=== PATIENT | female | born 1950 | race Caucasian/White ===

== ENCOUNTER → 2017-08-29 10:04 | Outpatient (CLI) | payer OTHER, SELFPAY ==
--- NOTE | 2017-08-29 10:11 | DI.CT.S_ITS ---
PROCEDURE: CT CERVICAL SPINE WO CON INDICATIONS: neck pain with radiculopathy TECHNIQUE: Noncontrast 3 mm thick sections acquired from the skull base to the T4 level. Sagittal and coronal reformats were then constructed. For radiation dose reduction, the following was used: automated exposure control, adjustment of mA and/or kV according to patient size. COMPARISON: None. FINDINGS: Image quality: Excellent. Bones: No fractures or dislocations. Visualized superior ribs are intact. Prior anterior discectomy and fusion C5-6 and C6-7 with surgical plate and fixation screws appearing intact. There appears to be bony union through the area of fusion, mild marginal irregularity posteriorly. There is disc narrowing and mild spondylosis at the C4-5 level. Slight anterolisthesis at C2-3 and C3-4 with reversal of cervical lordosis at those levels. Visualized upper thoracic spine is unremarkable. Soft tissues: Prevertebral soft tissues are normal in thickness. No paravertebral hematomas. No apical pneumothoraces. Nasal septum deviates to the right with prominent left honey bullosa. IMPRESSION: 1. Remote postoperative changes of anterior discectomy and fusion C5-C6-C7. 2. Degenerative disc disease C4-5. Dictated by: Kev Sánchez M.D. on 08/29/2017 at 10:30 Approved by: Kev Sánchez M.D. on 08/29/2017 at 10:40
== END ==
PROVIDERS: PCP Family Medicine; Visit Provider Family Medicine
DX: M54.12 Radiculopathy, cervical region (principal); M47.892 Other spondylosis, cervical region
CPT/HCPCS: 72125

== ENCOUNTER → 2018-01-21 09:01 | Outpatient (CLI) | payer OTHER, SELFPAY ==
[2018-01-21 10:45] LABS: Cholesterol 252 mg/dL (140-199); HDL Cholesterol 64 mg/dL (40-60); LDL Cholesterol Calculated 161 mg/dL (<100); Triglycerides 136 mg/dL (35-150)
== END ==
PROVIDERS: PCP Family Medicine; Visit Provider Family Medicine
DX: E78.5 Hyperlipidemia, unspecified (principal)
CPT/HCPCS: 36415; 80061

== ENCOUNTER → 2018-04-11 16:27 | Outpatient (CLI) | payer OTHER, SELFPAY ==
--- NOTE | 2018-04-11 16:30 | DI.US.S_ITS ---
PROCEDURE: US PERIPH VENOUS LOW EXTREM RT INDICATIONS: right LE edema, calf pain, r/o DVT TECHNIQUE: Real-time imaging, as well as color and pulse Doppler interrogation, were performed of the lower extremity deep veins from the inguinal ligament to the popliteal fossa. COMPARISON: None. FINDINGS: The deep veins are normally compressible, and free of intraluminal thrombus. Color and pulse Doppler demonstrate normal phasic intraluminal flow. There is normal augmentation response to distal compression maneuver. IMPRESSION: No DVT found. Dictated by: Aries Ojeda M.D. on 04/11/2018 at 17:13 Approved by: Aries Ojeda M.D. on 04/11/2018 at 17:13
== END ==
PROVIDERS: PCP Family Medicine; Visit Provider Family Medicine
DX: M79.661 Pain in right lower leg (principal); R60.9 Edema, unspecified
CPT/HCPCS: 93971

== ENCOUNTER → 2018-08-21 10:42 | Outpatient (CLI) | payer OTHER, SELFPAY ==
--- NOTE | 2018-08-21 10:59 | DI.CT.S_ITS ---
PROCEDURE: CT CHEST ABDOMEN WO CON INDICATIONS: Lung nodule. Left flank and upper quadrant abdominal pain TECHNIQUE: After the administration of oral contrast, 5 mm thick sections acquired from the pulmonary apices to the iliac crests. 5 mm thick coronal and sagittal reformats acquired, with additional 7 mm coronal MIP reformats through the lungs. For radiation dose reduction, the following was used: automated exposure control, adjustment of mA and/or kV according to patient size. COMPARISON: None. FINDINGS: Image quality: Excellent. CHEST: Lungs and pleura: No acute pulmonary opacities. No pleural effusions or pneumothorax. Central and peripheral airways are patent and normal in caliber. Mediastinum: Heart size is normal. No pericardial effusion. No mediastinal adenopathy by size criteria. Thoracic aorta and central pulmonary arteries are normal in size. Esophagus is normal in caliber. No hiatal hernia. Chest wall: No axillary or supraclavicular adenopathy by size criteria. Thyroid gland appears normal. Scattered high density foci within the soft tissues of the chest suggests prior breast carcinoma surgery. No soft tissue mass or evidence of metastatic disease is found. This study is performed without oral or intravenous contrast and therefore is somewhat limited. ABDOMEN: Solid organs: Liver is normal in size. Gallbladder appears normal. Pancreas is normal in contours. Spleen is normal in size. No adrenal nodules. Both kidneys are normal in size, without hydronephrosis or nephrolithiasis. Peritoneum and bowel: Small and large bowel loops are normal in caliber and wall thickness. No free fluid or air. Nodes and vessels: No retroperitoneal or mesenteric adenopathy by size criteria. Aorta and inferior vena cava are normal in caliber. Miscellaneous: No ventral hernias. IMPRESSION: 1. The clinical history provided indicates that outside imaging study or studies may be available that identify an area of pulmonary nodule or other pulmonary parenchymal concern. Those studies have been requested but are not yet available for review. No malignant appearing mass or evidence of pneumonia is currently found and for this reason an addendum report will be generated with benefit of the outside comparison studies when they become available for review. 2. The patient also reports left-sided flank pain, but the current examination shows no evidence of inflammation along the left flank area or evidence of hydronephrosis or nephrolithiasis. Source of those symptoms is not seen. 3. Bilateral high density small structures within the chest wall/breast tissue anteriorly and left axilla raises question of whether prior breast carcinoma surgery has been performed. Please correlate clinically. As noted above the study is without oral or intravenous contrast and there is poor somewhat limited in quality for detecting evidence of metastatic disease. Dictated by: Aries Ojeda M.D. on 08/22/2018 at 11:36 Approved by: Aries Ojeda M.D. on 08/22/2018 at 11:42
== END ==
PROVIDERS: PCP Family Medicine; Visit Provider Family Medicine
DX: R91.1 Solitary pulmonary nodule (principal); R07.9 Chest pain, unspecified; R10.12 Left upper quadrant pain
CPT/HCPCS: 71250; 74150

== ENCOUNTER → 2018-11-04 15:30 | Outpatient (CLI) | payer OTHER, SELFPAY ==
--- NOTE | 2018-11-04 15:32 | DI.MRI.S_ITS ---
PROCEDURE: MR SHOULDER RT WO CON INDICATIONS: right shoulder and arm pain, exam suggests SS tear TECHNIQUE: Noncontrast oblique coronal T2 fast spin echo with fat saturation, oblique sagittal T1 spin echo and T2 fast spin echo with fat saturation, axial T1 spin echo and T2 fast spin echo with fat saturation through the shoulder. COMPARISON: None. FINDINGS: Image quality: Excellent. Rotator cuff: The supraspinatus, infraspinatus, and subscapularis tendons appear intact throughout. Sagittal images demonstrate no muscle atrophy. Bones and bursae: No bone marrow contusions or fractures. There is moderate acromioclavicular joint degeneration. The acromion demonstrates conventional anatomy, without an os acromiale. No pathologic subacromial-subdeltoid or subcoracoid bursal fluid is present. Capsule and soft tissues: In the absence of intra-articular contrast, the labrum and glenohumeral ligaments appear intact. The long head of the biceps tendon demonstrates normal location and morphology. The rotator interval appears normal, without fibrosis. The coracohumeral ligament is normal in thickness. IMPRESSION: 1. Acromioclavicular joint osteoarthritis. 2. No rotator cuff tear. Dictated by: Chan Tucker M.D. on 11/04/2018 at 16:40 Approved by: Chan Tucker M.D. on 11/04/2018 at 16:41
== END ==
PROVIDERS: PCP Family Medicine; Visit Provider Family Medicine
DX: M19.011 Primary osteoarthritis, right shoulder (principal); M75.80 Other shoulder lesions, unspecified shoulder
CPT/HCPCS: 73221

== ENCOUNTER → 2019-02-24 06:58 | Outpatient (CLI) | payer OTHER, SELFPAY ==
[2019-02-24 08:28] LABS: Add Manual Diff / Slide Review NO; Basophils Absolute Auto 100 /uL (0-100); Basophils Percent Auto 1.7 % (0-2); Eosinophils Absolute Auto 500 /uL (0-450); Eosinophils Percent Auto 9.6 % (2-4); Hematocrit 38.3 % (36-46); Hemoglobin 12.7 g/dL (12.0-16.0); Lymphocytes Absolute Auto 1700 /uL (1100-4500); Lymphocytes Percent Auto 31.5 % (25-40); Mean Corpuscular HGB Conc 33.1 % (30-36); Mean Corpuscular Volume 84.5 fL (80-100); Monocytes Absolute Auto 300 /uL (0-900); Monocytes Percent Auto 6.1 % (3-14); Neutrophils Absolute Auto 2700 /uL (1500-7000); Neutrophils Percent Auto 51.1 % (50-75); Platelet Count 297 X10^3/uL (150-400); Red Blood Cell Count 4.53 X10^6/uL (4.0-5.2); Red Cell Distribution Width 13.4 % (11.6-14.8); White Blood Cell Count 5.4 X10^3/uL (4.5-11.0)
[2019-02-24 08:47] LABS: Alanine Aminotransferase 21 IU/L (<35); Albumin 4.3 g/dL (3.5-5.0); Albumin Globulin Ratio 1.4 (1.0-2.8); Alkaline Phosphatase 60 U/L (38-126); Aspartate Aminotransferase 27 IU/L (14-36); BUN Creatinine Ratio 23.3 (6-22); Bilirubin Total 0.6 mg/dL (0.2-1.3); Blood Urea Nitrogen 21 mg/dL (7-17); Calcium 9.5 mg/dL (8.4-10.2); Carbon Dioxide 29 mmol/L (22-32); Chloride 104 mmol/L (98-107); Cholesterol 233 mg/dL (140-199); Estimated Glomerular Filt Rate > 60.0 mL/min (>60); Globulin 3.1 g/dL (1.7-4.1); Glucose 110 mg/dL (80-110); HDL Cholesterol 55 mg/dL (40-60); HEMOLYSIS < 15 (0-50); LDL Cholesterol Calculated 147 mg/dL (<100); Potassium 3.7 mmol/L (3.4-5.1); Sodium 141 mmol/L (137-145); Total Protein 7.4 g/dL (6.3-8.2); Triglycerides 154 mg/dL (35-150)
[2019-02-24 09:17] LABS: Thyroid Stimulating Hormone 4.08 uIU/mL (0.47-4.68)
== END ==
PROVIDERS: PCP Family Medicine; Visit Provider Family Medicine
DX: E78.00 Pure hypercholesterolemia, unspecified (principal); I10 Essential (primary) hypertension; I67.9 Cerebrovascular disease, unspecified; E78.5 Hyperlipidemia, unspecified
CPT/HCPCS: 36415; 80053; 80061; 84443; 85025

== ENCOUNTER → 2019-04-28 07:26 | Outpatient (CLI) | payer OTHER, SELFPAY ==
[2019-04-28 08:08] LABS: Cholesterol 190 mg/dL (140-199); HDL Cholesterol 55 mg/dL (40-60); LDL Cholesterol Calculated 107 mg/dL (<100); Triglycerides 138 mg/dL (35-150)
[2019-04-28 08:31] LABS: C-Reactive Protein Quant < 0.5 mg/dL (<1.0)
== END ==
PROVIDERS: PCP Family Medicine; Referring Provider Family Medicine; Visit Provider Family Medicine
DX: E78.00 Pure hypercholesterolemia, unspecified (principal); M79.10 Myalgia, unspecified site
CPT/HCPCS: 36415; 80061; 86140

== ENCOUNTER → 2019-09-30 11:47 | Outpatient (CLI) | payer OTHER, SELFPAY ==
--- NOTE | 2019-09-30 11:50 | DI.RAD.S_ITS ---
PROCEDURE: XR CHEST 2V INDICATIONS: SHORTNESS OF BREATH TECHNIQUE: 2 views of the chest were acquired. COMPARISON: None. FINDINGS: Surgical changes and devices: Surgical clips in the breasts bilaterally. Partially visualized cervical spine fixation hardware. Lungs and pleura: Lungs are clear. No pleural effusions or pneumothorax. Mediastinum: Mediastinal contours are normal. Heart size is normal. Bones and chest wall: No suspicious bony abnormalities. Soft tissues appear unremarkable. IMPRESSION: No acute cardiopulmonary disease process. Dictated by: Suyapa Ling MD, PhD on 09/30/2019 at 17:40 Approved by: Suyapa Ling MD, PhD on 09/30/2019 at 17:40
== END ==
PROVIDERS: PCP Family Medicine; Referring Provider Family Medicine; Visit Provider Family Medicine
DX: R06.02 Shortness of breath (principal)
CPT/HCPCS: 71046

== ENCOUNTER → 2019-10-01 08:16 | Outpatient (CLI) | payer OTHER, SELFPAY ==
[2019-10-01 10:22] LABS: Add Manual Diff / Slide Review NO; Basophils Absolute Auto 100 /uL (0-100); Basophils Percent Auto 1.2 % (0-2); Eosinophils Absolute Auto 300 /uL (0-450); Eosinophils Percent Auto 6.4 % (2-4); Hematocrit 38.7 % (36-46); Hemoglobin 12.6 g/dL (12.0-16.0); Lymphocytes Absolute Auto 1500 /uL (1100-4500); Lymphocytes Percent Auto 29.4 % (25-40); Mean Corpuscular HGB Conc 32.6 % (30-36); Mean Corpuscular Hemoglobin 27.3 PG (26-34); Mean Corpuscular Volume 83.9 fL (80-100); Monocytes Absolute Auto 400 /uL (0-900); Neutrophils Absolute Auto 2900 /uL (1500-7000); Platelet Count 291 X10^3/uL (150-400); Red Blood Cell Count 4.62 X10^6/uL (4.0-5.2); Red Cell Distribution Width 13.8 % (11.6-14.8); White Blood Cell Count 5.2 X10^3/uL (4.5-11.0)
[2019-10-01 10:32] LABS: Alanine Aminotransferase 20 IU/L (<35); Albumin 4.3 g/dL (3.5-5.0); Albumin Globulin Ratio 1.4 (1.0-2.8); Alkaline Phosphatase 65 U/L (38-126); Aspartate Aminotransferase 27 IU/L (14-36); BUN Creatinine Ratio 21.5 (6-22); Bilirubin Total 0.6 mg/dL (0.2-1.3); Blood Urea Nitrogen 20 mg/dL (7-17); Calcium 9.8 mg/dL (8.4-10.2); Carbon Dioxide 29 mmol/L (22-32); Chloride 105 mmol/L (98-107); Cholesterol 263 mg/dL (140-199); Estimated Glomerular Filt Rate > 60.0 mL/min (>60); Glucose 106 mg/dL (80-110); HDL Cholesterol 56 mg/dL (40-60); HEMOLYSIS < 15 (0-50); LDL Cholesterol Calculated 175 mg/dL (<100); Potassium 3.9 mmol/L (3.4-5.1); Sodium 142 mmol/L (137-145); Total Protein 7.3 g/dL (6.3-8.2); Triglycerides 158 mg/dL (35-150)
[2019-10-01 10:58] LABS: TSH w/ Reflex to FT4 4.47 uIU/mL (0.47-4.68)
== END ==
PROVIDERS: PCP Family Medicine; Referring Provider Family Medicine; Visit Provider Family Medicine
DX: R53.83 Other fatigue (principal); I10 Essential (primary) hypertension
CPT/HCPCS: 36415; 80053; 80061; 82043; 82570; 84443; 85025

== ENCOUNTER → 2019-10-01 13:51 | Outpatient (CLI) | payer OTHER, SELFPAY ==
[2019-10-01 15:44] LABS: Creatinine Urine Random 148.3 mg/dL
[2019-10-01 15:46] LABS: Microalbumi Creatinin Ratio Ur 10.1 ug/mg CR (<30); Microalbumin Urine Random 1.5 mg/dL (0-1.6)
== END ==
PROVIDERS: PCP Family Medicine; Referring Provider Family Medicine; Visit Provider Family Medicine
DX: I10 Essential (primary) hypertension (principal)
CPT/HCPCS: 82043; 82570

== ENCOUNTER → 2019-10-06 06:49 | Outpatient (CLI) | payer OTHER, SELFPAY ==
--- NOTE | 2019-10-06 06:50 | DI.ECHO.S_ITS ---
[place] +---------+ [facility] +---------+ : : [address] : : : : [id number] : : : : Phone: [phone]+ Echocardiogram Report + + :Name: JANIS GUERRERO Study Date: 10/06/2019 Height: 63 in : :[facility] [facility] Weight: 180 lb : : Gender: Female BSA: 1.8 m2 : :: 1950 Age: 69 yrs BP: 134/82 mmHg: :Reason For Study: Lower Extremity Edema : :Ordering Physician: ALEJANDRO, : :ANALI CHAMORRO Performed By: Kusum Gale : :Referring: ANALI ALLEN : + + Interpretation Summary The left ventricle is normal in size. The ejection fraction is estimated to be 60-65%. The right ventricle is normal in size and function. There is mild mitral regurgitation. There is discrete nodular thickening of the right coronary cusp. There is mild to moderate aortic regurgitation. There is no aortic valve stenosis. Procedure: A two-dimensional transthoracic echocardiogram with color flow and Doppler was performed. The study quality was technically adequate. There is no prior echocardiogram noted for this patient. The heart rate ranged between 63-72 bpm during the study. The patient was in normal sinus rhythm during the exam. Left Ventricle: The left ventricle is normal in size. Proximal septal thickening is noted. There is no echo evidence for significant left ventricular outflow tract obstruction. There is no thrombus. The ejection fraction is estimated to be 60-65%. There are no focal wall motion abnormalities. MV E/A: 1.0 Med Peak E' Titi: 6.2 cm/sec E/E' med: 13.4. Right Ventricle: The right ventricle is normal in size and function. Atria: Both atria are normal in size. There is no Doppler evidence for an interatrial shunt. Mitral Valve: There is mild mitral annular calcification. The mitral valve leaflets are mildly calcified. There is mild mitral regurgitation. Aortic Valve: The aortic valve is trileaflet. The aortic valve opens well. There is discrete nodular thickening of the right coronary cusp. There is no aortic valve stenosis. There is mild to moderate aortic regurgitation. Tricuspid Valve: The tricuspid valve is normal in structure and function. Pulmonary artery pressures cannot be estimated because of the lack of a measurable TR jet velocity but the IVC suggests a CVP of around 3 mmHg. There is trace tricuspid regurgitation. Pulmonic Valve: The pulmonic valve is not well visualized. There is no pulmonic valvular regurgitation. Great Vessels: The aortic root is normal size. The ascending aorta is normal in size. The IVC is of normal diameter and collapses greater than 50% with a sniff. This suggests a low right atrial pressure of 3 mm Hg. Pericardium/ Pleura There is no pericardial effusion. There is no pleural effusion. MMode/2D Measurements & Calculations LVIDd: 4.7 cm LVOT diam: 2.1 cm LVIDs: 3.0 cm Ao root diam: 2.5 cm FS: 36.3 % asc Aorta Diam: 2.9 cm EPSS: 0.56 cm Ao Arch Diam (Prox Trans): 3.0 cm IVSd: 0.96 cm LVPWd: 0.89 cm LV mckenzie. diameter/BSA (cm/m^2): 2.5 LV sys. diameter/BSA (cm/m^2): 1.6 LA A2 area: 16.2 cm2 RA long axis: 4.8 cm LA A4 area: 17.8 cm2 RA area: 15.4 cm2 LA length (vol): 4.8 cm RA vol: 42.2 ml LA vol: 50.8 ml RA : 22.8 ml/m2 LA vol index: 27.5 ml/m2 IVC diam: 1.2 cm RVD1 (basal): 3.2 cm TAPSE: 1.9 cm Doppler Measurements & Calculations Ao V2 max: 154.9 cm/sec LVOT Max Titi: 109.2 cm/sec Ao V2 mean: 95.0 cm/sec LV V1 max P.8 mmHg Ao max P.6 mmHg LV V1 VTI: 23.6 cm Ao mean P.3 mmHg KEITH(I,D): 2.5 cm2 Ao V2 VTI: 31.5 cm KEITH(V,D): 2.4 cm2 sev ratio: 0.75 KEITH indexed to BSA (cm^2/m^2): 1.4 AI P1/2t: 456.5 msec AI dec slope: 274.9 cm/sec2 MV E max titi: 83.1 cm/sec PA V2 max: 79.6 cm/sec MV A max titi: 81.7 cm/sec PA V2 mean: 53.7 cm/sec MV E/A: 1.0 PA mean P.3 mmHg Med Peak E' Titi: 6.2 cm/sec PA pr(Accel): 22.5 mmHg E/E' med: 13.4 Lat Peak E' Titi: 8.7 cm/sec E/E' lat: 9.6 E/e' average: 11.5 MV dec time: 0.21 sec SV(LVOT): 79.1 ml Reading Physician:11:55 AM
== END ==
PROVIDERS: PCP Family Medicine; Referring Provider Family Medicine; Visit Provider Family Medicine
DX: I08.0 Rheumatic disorders of both mitral and aortic valves (principal); R60.0 Localized edema; R06.01 Orthopnea
CPT/HCPCS: 93306

== ENCOUNTER → 2019-10-19 10:53 | Outpatient (CLI) | payer OTHER, SELFPAY ==
[2019-10-20 07:28] LABS: COVID19 Sendout Not Detected (Not Detect)
== END ==
PROVIDERS: PCP Family Medicine; Visit Provider Physician Assistant
DX: Z11.59 Encounter for screening for other viral diseases (principal)
CPT/HCPCS: 87635

== ENCOUNTER 2019-10-22 13:23 | Day surgery (SDC) | payer OTHER, SELFPAY ==
--- NOTE | 2019-10-22 | PATH_ITS ---
[facility] Accession Number: [id number] . 01 Material submitted: . esophagus, E-G Junction - GE JUNCTION . 02 Diagnosis: Gastroesophageal Junction, Biopsy: Squamous epithelium with no diagnostic abnormality. Intraepithelial eosinophils are not increased. Negative for dysplasia and malignancy. V 10/26/2019 1236 Local . 02 Electronically signed: . Loretta Velazquez MD, Pathologist NPI- [id number] . 01 Gross description: . GE JUNCTION: Received in formalin are 2 fragment(s) of johnson, soft tissue measuring 0.4 x 0.2 x 0.1 cm to 0.3 x 0.3 x 0.1 cm submitted entirely in 1 cassette(s) /QBJ 10/23/2019 0340 Local . 02 Pathologist provided ICD-10: K21.9 . 02 CPT . 325867 Performed at: 01 [facility] [address] [facility], [place], [place] [id number] MD Jevon Wilburn MD Phone: [phone] Performed at: 02 [facility] [address] [place], [place] [id number] MD Loretta Velazquez MD Phone: [phone]
[2019-10-22 13:56] VITALS: BP 175/86; PULSE 68; RESP 18; TEMP 37; O2SAT 97; BMI 32.4
[2019-10-22] MEDS: LACTATED RINGERS 1,000 ML 200 ML IV (14:14)
--- NOTE | 2019-10-22 14:16 | PM.PREOP ---
Pre-operative Note COVID-19 COVID-19 status: Negative Interval Note History & Physical reviewed/Exam performed by Physician: Yes Changes to H&P: No ASA Class (for procedural sedation): II
--- NOTE | 2019-10-22 14:44 | PM.OP.ENDO ---
Operative Date/Time/Diagnoses Date of procedure: 10/22/19 Time of procedure: 14:44 Pre-op diagnosis: Gastroesophageal reflux Post-op diagnosis: same Procedure & Clinicians Study performed: Esophagoduodenoscopy Same procedure as scheduled: Yes Indications: 69-year-old woman with longstanding GERD presents for diagnostic EGD for refractory reflux Surgeon: Wade Phan Procedure Notes SCOAP/Timeout: Performed Procedure in detail: Patient placed in left lateral decubitus position. Time out was performed. Procedural sedation was administered with Versed and Fentanyl. A bite block was placed. the scope was inserted into the mouth and advanced through the esophagus and into the stomach. The pylorus was intubated and the duodenum was normal to the 2nd portion. The scope was retroflexed within the stomach and there was a moderate size hiatal hernia. No ulcers, or gastritis. The scope was withdrawn into the esophagus the Z line was seen at 35 cm from the incisions. There was no mcclain's esophagitis or masses or strictures. 4 random biopsies of the GE junction were taken with forceps. Stomach was desufflated and scope removed. Patient tolerated procedure well. Sedation minutes: 12 Findings: hiatal hernia Specimen(s): other (GE junction) Complications: none Impression: Hiatal hernia Post-procedure Recommendations: Other recommendation (Increase omeprazole to 20 mg twice daily) Disposition: same day surgery
[2019-10-22] MEDS: ONDANSETRON 4 MG/2 ML INJ IV (14:46)
[2019-10-22] MEDS: fentaNYL 250 MCG/5 ML INJ IV (14:47)
[2019-10-22] MEDS: MIDAZOLAM 5 MG/5 ML VIAL IV (14:47)
[2019-10-22 14:48] VITALS: BP 109/87; PULSE 70; RESP 12; TEMP 36.8; O2SAT 95
[2019-10-22] MEDS: LIDOCAINE 4% SOLN 50 ML 20 ML TOP (14:50)
[2019-10-22 14:53] VITALS: BP 146/86; PULSE 68; RESP 16; O2SAT 92
[2019-10-22 14:57] VITALS: BP 154/83; PULSE 72; RESP 16; O2SAT 91
[2019-10-22 15:04] VITALS: BP 146/82; PULSE 67; RESP 16; O2SAT 94
[2019-10-22 15:07] VITALS: BP 146/82; PULSE 68; RESP 16; TEMP 36.8; O2SAT 98
--- NOTE | 2019-10-22 15:23 | SUR.PHASEII ---
pt states she feels fine and ready to go home. Denies any complaints. Pt states she feels she was never even under. Pt states she understands d/c instructions and pt had a cup of juice prior to d/c
== END 2019-10-22 15:24 | disposition home or self-care (01) ==
PROVIDERS: PCP Family Medicine; Referring Provider Family Medicine; Visit Provider Surgery
PROC: 0DJ08ZZ Inspection of Upper Intestinal Tract, Via Natural or Artificial Opening Endoscopic (ICD-10-PCS; CPT 43235; principal; 2019-10-22 14:30)
DX: K44.9 Diaphragmatic hernia without obstruction or gangrene (principal)
CPT/HCPCS: 43239; 99152; J2250; J2405; J3010

== ENCOUNTER → 2019-10-31 10:12 | Outpatient (CLI) | payer OTHER, SELFPAY ==
[2019-11-01 18:52] LABS: COVID19 Sendout Not Detected (Not Detect)
== END ==
PROVIDERS: PCP Family Medicine; Visit Provider Nurse Practitioner
DX: Z11.59 Encounter for screening for other viral diseases (principal)
CPT/HCPCS: 87635

== ENCOUNTER → 2019-11-12 11:42 | Outpatient (CLI) | payer OTHER, SELFPAY ==
[2019-11-12 13:19] LABS: BUN Creatinine Ratio 24.7 (6-22); Blood Urea Nitrogen 22 mg/dL (7-17); Estimated Glomerular Filt Rate > 60.0 mL/min (>60)
[2019-11-13 12:25] LABS: Calcium 9.4 mg/dL (8.4-10.2); Carbon Dioxide 29 mmol/L (22-32); Chloride 103 mmol/L (98-107); Glucose 106 mg/dL (80-110); HEMOLYSIS < 15 (0-50); Potassium 4.3 mmol/L (3.4-5.1); Sodium 138 mmol/L (137-145)
== END ==
PROVIDERS: PCP Family Medicine; Referring Provider Family Medicine; Visit Provider Family Medicine
DX: Z01.812 Encounter for preprocedural laboratory examination (principal)
CPT/HCPCS: 36415; 80048; 82565; 84520

== ENCOUNTER → 2019-11-13 10:50 | Outpatient (CLI) | payer OTHER, SELFPAY ==
--- NOTE | 2019-11-13 10:51 | DI.CT.S_ITS ---
PROCEDURE: CT ABDOMEN W CON INDICATIONS: nausea,gerd TECHNIQUE: After the administration of intravenous contrast, 5 mm thick sections acquired from the diaphragm to the iliac crests. 5 mm coronal and sagittal reformats were performed. For radiation dose reduction, the following was used: automated exposure control, adjustment of mA and/or kV according to patient size. COMPARISON: [facility], CT, CT CHEST ABDOMEN WO [facility], 08/21/2018, 10:51. FINDINGS: Image quality: Excellent. Lung bases: Lung bases are clear. Minimal bilateral pleural effusions. Heart size is normal. Moderate hiatal hernia Solid organs: Liver is normal in size and enhancement. Gallbladder is unremarkable. Biliary system is non dilated. Pancreas enhances normally. Spleen is normal in size and enhancement. No adrenal nodules. Kidneys demonstrate normal size and enhancement, without hydronephrosis. Peritoneum and bowel: Bowel loops demonstrate normal wall thickness and caliber. No free fluid or air. Nodes and vessels: No retroperitoneal or mesenteric adenopathy by size criteria. Aorta and inferior vena cava are normal in size. Miscellaneous: No ventral hernias. IMPRESSION: 1. Minimal bilateral pleural effusions. 2. Moderate hiatal hernia. 3. No evidence of metastatic disease. Dictated by: Weston Hurley M.D. on 11/13/2019 at 12:53 Approved by: Weston Hurley M.D. on 11/13/2019 at 12:55
== END ==
PROVIDERS: PCP Family Medicine; Referring Provider Family Medicine; Visit Provider Family Medicine
DX: R11.2 Nausea with vomiting, unspecified (principal); K21.9 Gastro-esophageal reflux disease without esophagitis; K44.9 Diaphragmatic hernia without obstruction or gangrene
CPT/HCPCS: 74160

== ENCOUNTER → 2020-03-18 11:57 | Outpatient (CLI) | payer MEDICARE, SELFPAY ==
[2020-03-18] MEDS: COVID-19 VACC(MODERNA-1)/PF 100 MCG/0.5 ML VIAL IM (12:07)
== END ==
PROVIDERS: PCP Family Medicine; Visit Provider Internal Medicine
DX: Z23 Encounter for immunization (principal)
CPT/HCPCS: 0011A; 91301

== ENCOUNTER → 2020-04-14 08:58 | Outpatient (CLI) | payer MEDICARE, SELFPAY ==
[2020-04-14] MEDS: COVID-19 VACC #2, MRNA(MOD) 100 MCG/0.5 ML VIAL IM (09:02)
== END ==
PROVIDERS: PCP Family Medicine; Visit Provider Internal Medicine
DX: Z23 Encounter for immunization (principal)
CPT/HCPCS: 0012A; 91301

== ENCOUNTER → 2020-04-16 12:23 | Outpatient (CLI) | payer MEDICARE, SELFPAY ==
--- NOTE | 2020-04-16 12:27 | DI.RAD.S_ITS ---
PROCEDURE: XR ANKLE RT MIN 3V INDICATIONS: R ankle and fibula pain post fall TECHNIQUE: 3 views of the ankle were acquired. COMPARISON: None. FINDINGS: Bones: There is no acute fracture. Subtle irregularity of the distal aspect of the medial malleolus may represent cycle of remote trauma. Ankle mortise is normally aligned. 5 millimeter lucency noted on the lateral talar dome of the mortise view. Soft tissues: No tibiotalar joint effusion. Achilles tendon appears normal. IMPRESSION: No acute osseous abnormality. Findings concerning for osteochondral lesion within the lateral talar dome. Dictated by: Kenny Medrano D.O. on 04/16/2020 at 11:56 Approved by: Kenny Medrano D.O. on 04/16/2020 at 11:59
--- NOTE | 2020-04-16 12:27 | DI.RAD.S_ITS ---
PROCEDURE: XR TIBIA FUBULA RT 2V INDICATIONS: R ankle and fibula pain post fall TECHNIQUE: 2 views of the tibia and fibula were acquired. COMPARISON: [facility], CR, XR ANKLE RT MIN 3V, 04/16/2020, 12:29. FINDINGS: Bones: There is no acute fracture. Irregularity of the medial malleolus likely represents cycle of prior trauma. There is subtle smooth periosteal reaction of the medial aspect of the proximal tibia. No acute abnormality of the imaged knee. Soft tissues: No suspicious soft tissue calcifications or masses. Small Achilles insertional enthesophyte. IMPRESSION: No acute osseous abnormality. Mild smooth periosteal new bone formation along the medial aspect of the proximal tibia may represent sequela of chronic stress reaction. Dictated by: Kenny Medrano D.O. on 04/16/2020 at 12:00 Approved by: Kenny Medrano D.O. on 04/16/2020 at 12:02
== END ==
PROVIDERS: PCP Family Medicine; Referring Provider Nurse Practitioner; Visit Provider Nurse Practitioner
DX: S89.91XA Unspecified injury of right lower leg, initial encounter (principal); W19.XXXA Unspecified fall, initial encounter
CPT/HCPCS: 73590; 73610

== ENCOUNTER → 2020-05-18 07:18 | Outpatient (CLI) | payer MEDICARE, SELFPAY ==
[2020-05-18 08:32] LABS: Cholesterol 139 mg/dL (140-199); HDL Cholesterol 54 mg/dL (40-60); LDL Cholesterol Calculated 63 mg/dL (<100); Triglycerides 111 mg/dL (35-150)
== END ==
PROVIDERS: PCP Family Medicine; Referring Provider Family Medicine; Visit Provider Family Medicine
DX: E78.00 Pure hypercholesterolemia, unspecified (principal); I73.9 Peripheral vascular disease, unspecified
CPT/HCPCS: 36415; 80061

== ENCOUNTER 2020-10-04 05:19 | Emergency (ER) | payer MEDICARE, OTHER, SELFPAY ==
[2020-10-04 05:30] VITALS: BP 193/78; PULSE 110; RESP 18; TEMP 37.6; O2SAT 94; BMI 31.1
--- NOTE | 2020-10-04 05:42 | ED_ITS ---
HPI - General Adult General Chief complaint: Abdominal Pain Stated complaint: nausea/vomiting/tightness around stomach Time Seen by Provider: 10/04/20 05:32 Source: patient Mode of arrival: Ambulatory Limitations: no limitations History of Present Illness HPI narrative: Patient is a 70-year-old female here for evaluation nausea and vomiting since approximately 0800 hours last evening. She has also had some upper abdominal discomfort since that time. No diarrhea. No fevers. Does not have any nausea medicine at home. Related Data Home Medications Medication Instructions Recorded Confirmed aspirin 81 mg tablet,delayed 81 mg PO DAILY 10/03/18 09/30/20 release (Aspirin Low Dose) evolocumab 420 mg/3.5 mL mg SUBCUT MONTHLY ml 09/30/20 09/30/20 subcutaneous wearable injector (Repatha Pushtronex) Previous Rx's Medication Instructions Recorded albuterol sulfate 90 mcg/actuation 2 puff INHALATION Q4HP PRN #1 inh 09/30/19 aerosol inhaler (Ventolin HFA) tamsulosin 0.4 mg capsule (Flomax) 0.4 mg PO QDAY #90 caplet 09/30/19 omeprazole 20 mg capsule,delayed See Rx Instructions .ROUTE 05/12/20 release .COMPLEX #180 cap albuterol sulfate 90 mcg/actuation 1 inh INHALATION QID PRN #6.7 g 08/15/20 aerosol inhaler hydrochlorothiazide 12.5 mg capsule 12.5 mg PO QDAY #90 cap 09/08/20 losartan 50 mg tablet 50 mg PO QDAY #90 tab 09/19/20 ondansetron 4 mg disintegrating 4 mg PO Q6H PRN #10 tab 10/04/20 tablet Allergies Allergy/AdvReac Type Severity Reaction Status Date / Time Opioids - Morphine Analogues Allergy Unknown Verified 08/15/20 13:28 Review of Systems Constitutional Constitutional: Denies fever(s) Cardiovascular Cardiovascular: Denies chest pain and Denies dyspnea Respiratory Respiratory: Denies dyspnea Gastrointestinal Gastrointestinal: Reports abdominal pain, Denies change in bowel habits, Reports nausea and Reports vomiting Genitourinary Genitourinary: Denies dysuria Musculoskeletal Musculoskeletal: Reports system reviewed and no additional complaints, except as documented Integumentary/Breasts Skin/Breast: Reports system reviewed and no additional complaints, except as documented Neurologic Neurologic: Reports system reviewed and no additional complaints, except as documented Hematologic/Lymphatic On Anticoagulants: No Patient History Medical History (Updated 10/04/20 @ 07:34 by Per Granado DO) Actinic keratosis Asthma Cerebrovascular disease Cervical spine disease (~2002) Chicken pox (~1959) Chronic back pain (~2015) Chronic interstitial cystitis (02/26/17) Ear itch Endometriosis (~2008) Essential hypertension (02/26/17) Fibroids (~2004) Foot pain (~2015) Gastroesophageal reflux disease without esophagitis (02/26/17) Herpes History of malignant neoplasm of breast (02/26/17) Hyperlipidemia Lung nodule (04/09/17) Lymph edema (~2010) Measles (~1959) Osteoarthritis (~2016) Seasonal allergies Skin cancer Stress fracture (~2015) Vaginal atrophy (02/26/17) Surgical History History of breast reconstruction (~2006) History of cataract removal with insertion of prosthetic lens (~2012) History of laminectomy (~2003) History of lumpectomy (~2005) History of mastectomy (~2006) History of oophorectomy (~2008) History of surgery (~2002) Status post appendectomy (~2011) Family History Father Heart disease Brain tumor Parkinson's disease Emphysema, unspecified Mother Heart disease Hypertension Stroke Diabetes mellitus Sister Heart disease Hypertension Diabetes mellitus Social History marital status: number of children: 0 household members: spouse lives independently: Yes caregiver/support person: No housing: house pets and animals: No education level: master's degree occupational status: previously employed current occupational exposures/hazards: No special elizabeth needs: No leisure activities: exercise, reading, volunteer work and other other: travel seatbelt use: always helmet use: Yes water heater temp set < 120 deg: No (125) working smoke detector in home: Yes fire extinguisher in home: Yes carbon monox detector in home: Yes firearms in home: No do you feel safe at home: Yes Smoking Status: Never smoker second hand exposure: No alcohol intake: current substance use type: marijuana during the past year weight has: remained stable well-balanced diet: daily or most days daily servings fruits/ve-4 caffeine: Yes eating out: 1-3 times/week Type(s) of exercise: walking and weight lifting frequency: daily duration: 30-45 minutes/day Smoking Status: Never smoker alcohol intake frequency: a few times a month Substance Use Type: does not use Exam Initial Vital Signs Initial Vital Signs: Vital Signs Temperature 99.7 F H 10/04/20 05:30 Pulse Rate 110 H 10/04/20 05:30 Respiratory Rate 18 10/04/20 05:30 Blood Pressure 193/78 H 10/04/20 05:30 Pulse Oximetry 94 10/04/20 05:30 HENMT Head: normal to inspection and normocephalic Resp Effort & Inspection: normal respiratory effort Auscultation: clear to auscultation bilaterally Cardio Rate: tachycardic Rhythm: regular rhythm GI Inspection: normal to inspection Palpation: soft and No tender Skin General: no rashes or lesions noted Neuro General: patient alert, patient awake and moves all extremities Extrem General: normal to inspection Psych Appearance: grossly normal Course Orders Ordered: ED Orders 10/04/20 05:35 EKG-12 Lead Stat 10/04/20 05:45 Complete Blood Count AUTO DIFF Stat Comprehensive Metabolic Panel Stat Lipase Stat Discontinued Medications Sodium Chloride (Normal Saline 0.9%) 1,000 mls @ 500 mls/hr IV BOLUS ONE Stop: 10/04/20 07:33 Last Admin: 10/04/20 05:44 Dose: 500 mls/hr Documented by: TRAN Ondansetron HCl (Ondansetron 4 Mg/2 Ml Inj) 4 mg IV NOW ONE Stop: 10/04/20 05:35 Last Admin: 10/04/20 05:44 Dose: 4 mg Documented by: KGYELITZA Ondansetron HCl (Ondansetron 4 Mg/2 Ml Inj) 4 mg IV NOW ONE Stop: 10/04/20 06:25 Last Admin: 10/04/20 06:31 Dose: 4 mg Documented by: Vital Signs Vital signs: Vital Signs - 8 hr 10/04/20 05:30 Temperature 99.7 F H Pulse Rate 110 H Respiratory Rate 18 Blood Pressure 193/78 H Pulse Oximetry 94 Medical Decision Making Lab Data Lab results reviewed: Yes I reviewed the patient's lab results. Result diagrams: 10/04/20 05:45 10/04/20 05:45 Labs: Lab Results 10/04/20 10/04/20 10/04/20 Range/Units 05:45 05:45 05:45 WBC 11.4 H (4.5-11.0) X10^3/uL RBC 4.73 (4.0-5.2) X10^6/uL Hgb 12.9 (12.0-16.0) g/dL Hct 39.4 (36-46) % MCV 83.3 (80-100) fL MCH 27.2 (26-34) PG MCHC 32.7 (30-36) % RDW 14.1 (11.6-14.8) % Plt Count 271 (150-400) X10^3/uL Neut % (Auto) 94.4 H (50-75) % Lymph % (Auto) 2.4 L (25-40) % [place] % (Auto) 1.9 L (3-14) % Eos % (Auto) 1.0 L (2-4) % Baso % (Auto) 0.3 (0-2) % Neut # (Auto) 49690 H (9396-5880) /uL Lymph # (Auto) 300 L (8629-3918) /uL [place] # (Auto) 200 (0-900) /uL Eos # (Auto) 100 (0-450) /uL Baso # (Auto) 0 (0-100) /uL Sodium 140 (137-145) mmol/L Potassium 3.6 (3.4-5.1) mmol/L Chloride 102 (98-107) mmol/L Carbon Dioxide 29 (22-32) mmol/L BUN 28 H (7-17) mg/dL Creatinine 0.89 (0.52-1.04) mg/dL Estimated GFR > 60.0 (>60) mL/min BUN/Creatinine Ratio 31.5 H (6-22) Glucose 150 H (80-110) mg/dL Calcium 9.4 (8.4-10.2) mg/dL Total Bilirubin 0.9 (0.2-1.3) mg/dL AST 24 (14-36) IU/L ALT 18 (<35) IU/L Alkaline Phosphatase 70 (38-126) U/L Total Protein 7.8 (6.3-8.2) g/dL Albumin 4.5 (3.5-5.0) g/dL Globulin 3.3 (1.7-4.1) g/dL Albumin/Globulin Ratio 1.4 (1.0-2.8) Lipase 141 (23-300) U/L ECG Data Attestation: I personally reviewed and interpreted this ECG as follows: Interpretation: Sinus rhythm Ventricular rate 98 Normal axis Normal QRS Normal QTC Nonspecific ST T wave changes MDM Narrative Medical decision making narrative: Patient does have a relatively benign abdominal exam. Her labs are reassuring. Heart rate improved with fluids. LFTs unremarkable. EKG is unremarkable. Suspect that her abdominal discomfort is related to the vomiting. She reported some improvement with the Zofran was a ble to tolerate a small amount of fluids. Care turned over to Dr. Dang to follow-up and re-evaluate with anticipated discharge. Discharge Plan Departure Patient Disposition: Home Clinical Impression: Nausea and vomiting Instructions: Nausea and Vomiting-Adult Activity Restrictions/Additional Instructions: I do recommend that you increase your fluid intake by drinking a small amount of fluids over a longer period of time. Use the nausea medication as needed. Recommend a bland diet. Return to the emergency department for any new or worsening symptoms Prescriptions: New ondansetron 4 mg tablet,disintegrating 4 mg PO Q6H PRN (Reason: nausea and vomiting) Qty: 10 RF: 0 No Action aspirin [Aspirin Low Dose] 81 mg tablet,delayed release (DR/EC) 81 mg PO DAILY RF: 0 albuterol sulfate 90 mcg/actuation HFA aerosol inhaler 1 inh inhalation QID PRN (Reason: shortness of breath or wheezing) Qty: 6.7 RF: 0 Repatha Pushtronex 420 mg/3.5 mL wearable injector SUBCUT MONTHLY RF: 0 albuterol sulfate [Ventolin HFA] 90 mcg/actuation HFA aerosol inhaler 2 puff inhalation Q4HP PRN (Reason: shortness of breath or wheezing) Qty: 1 RF: 2 tamsulosin [Flomax] 0.4 mg capsule 0.4 mg PO QDAY Qty: 90 RF: 3 omeprazole 20 mg capsule,delayed release(DR/EC) See Rx Instructions .ROUTE .COMPLEX Qty: 180 RF: 1 hydrochlorothiazide 12.5 mg capsule 12.5 mg PO QDAY Qty: 90 RF: 3 losartan 50 mg tablet 50 mg PO QDAY Qty: 90 RF: 3 Referrals: Elisabet Durán MD [Primary Care Provider] -
[2020-10-04] MEDS: SODIUM CHLORIDE 0.9% 1,000 ML 500 ML IV (05:44)
[2020-10-04] MEDS: ONDANSETRON 4 MG/2 ML INJ IV ×2 (05:44→06:31)
[2020-10-04 05:55] LABS: Add Manual Diff / Slide Review NO; Basophils Absolute Auto 0 /uL (0-100); Basophils Percent Auto 0.3 % (0-2); Eosinophils Absolute Auto 100 /uL (0-450); Hematocrit 39.4 % (36-46); Hemoglobin 12.9 g/dL (12.0-16.0); Lymphocytes Absolute Auto 300 /uL (1100-4500); Lymphocytes Percent Auto 2.4 % (25-40); Mean Corpuscular HGB Conc 32.7 % (30-36); Mean Corpuscular Hemoglobin 27.2 PG (26-34); Mean Corpuscular Volume 83.3 fL (80-100); Monocytes Absolute Auto 200 /uL (0-900); Monocytes Percent Auto 1.9 % (3-14); Neutrophils Absolute Auto 10800 /uL (1500-7000); Neutrophils Percent Auto 94.4 % (50-75); Platelet Count 271 X10^3/uL (150-400); Red Blood Cell Count 4.73 X10^6/uL (4.0-5.2); Red Cell Distribution Width 14.1 % (11.6-14.8); White Blood Cell Count 11.4 X10^3/uL (4.5-11.0)
[2020-10-04 06:03] LABS: Lipase 141 U/L (23-300)
[2020-10-04 06:05] LABS: Alanine Aminotransferase 18 IU/L (<35); Albumin 4.5 g/dL (3.5-5.0); Albumin Globulin Ratio 1.4 (1.0-2.8); Alkaline Phosphatase 70 U/L (38-126); Aspartate Aminotransferase 24 IU/L (14-36); BUN Creatinine Ratio 31.5 (6-22); Bilirubin Total 0.9 mg/dL (0.2-1.3); Blood Urea Nitrogen 28 mg/dL (7-17); Calcium 9.4 mg/dL (8.4-10.2); Carbon Dioxide 29 mmol/L (22-32); Chloride 102 mmol/L (98-107); Estimated Glomerular Filt Rate > 60.0 mL/min (>60); Globulin 3.3 g/dL (1.7-4.1); Glucose 150 mg/dL (80-110); HEMOLYSIS < 15 (0-50); Potassium 3.6 mmol/L (3.4-5.1); Sodium 140 mmol/L (137-145); Total Protein 7.8 g/dL (6.3-8.2)
[2020-10-04 06:06] VITALS: PULSE 94; O2SAT 95
[2020-10-04 06:30] VITALS: PULSE 91; O2SAT 95
[2020-10-04 07:00] VITALS: PULSE 93; O2SAT 96
[2020-10-04 07:30] VITALS: PULSE 93; O2SAT 95
[2020-10-04 08:00] VITALS: BP 162/72; PULSE 92; O2SAT 96
== END 2020-10-04 08:28 | disposition home or self-care (01) ==
PROVIDERS: Emergency Provider Emergency Medicine; PCP Family Medicine
DX: R11.2 Nausea with vomiting, unspecified (principal); R10.10 Upper abdominal pain, unspecified
CPT/HCPCS: 36415; 80053; 83690; 85025; 93005; 96361; 96374; 96376; 99284; J2405

== ENCOUNTER → 2021-08-15 09:35 | Outpatient (CLI) | payer MEDICARE, OTHER, SELFPAY ==
--- NOTE | 2021-08-15 09:37 | DI.RAD.S_ITS ---
PROCEDURE: XR HIP W PEL IF DONE LT 2V INDICATIONS: L knee, pelvis, and hip pain TECHNIQUE: AP pelvis with lateral view(s) of the left hip(s). COMPARISON: None. FINDINGS: Bones: No fractures or dislocations. Pelvic ring appears intact. No suspicious bony lesions. Surgical clips are seen overlying the pelvis. Degenerative changes of both hips consistent with osteoarthritis. Soft tissues: The visualized bowel gas pattern is normal. No suspicious soft tissue calcifications. IMPRESSION: Degenerative changes of both hips consistent with mild osteoarthritis. No acute abnormality. Dictated by: Sumeet Lee M.D. on 08/15/2021 at 11:18 Approved by: Sumeet Lee M.D. on 08/15/2021 at 11:19
--- NOTE | 2021-08-15 09:37 | DI.RAD.S_ITS ---
PROCEDURE: XR CHEST 2V INDICATIONS: Chest Wall Pain TECHNIQUE: 2 views of the chest were acquired. COMPARISON: [facility], CR, XR CHEST 2V, 09/30/2019, 11:43. FINDINGS: Surgical changes and devices: Surgical clips are noted bilaterally. Lower cervical spine fusion. Lungs and pleura: Lungs are clear. No pleural effusions or pneumothorax. Mediastinum: Mediastinal contours are normal. Heart size is normal. Bones and chest wall: No suspicious bony abnormalities. Soft tissues appear unremarkable. IMPRESSION: No acute cardiopulmonary disease. Dictated by: Ruddy Matos M.D. on 08/15/2021 at 11:01 Approved by: Ruddy Matos M.D. on 08/15/2021 at 11:02
--- NOTE | 2021-08-15 09:37 | DI.RAD.S_ITS ---
PROCEDURE: XR KNEE LT 3V INDICATIONS: L knee, pelvis, and hip pain TECHNIQUE: 3 views of the knee were acquired. COMPARISON: None. FINDINGS: Bones: No fractures or dislocations. No suspicious bony lesions. Soft tissues: No joint effusion. No suspicious soft tissue calcifications. IMPRESSION: No radiographic abnormalities. Dictated by: Aniyah Berg M.D. on 08/15/2021 at 14:02 Approved by: Aniyah Berg M.D. on 08/15/2021 at 14:02
== END ==
PROVIDERS: PCP Family Medicine; Referring Provider Family Medicine; Visit Provider Family Medicine
DX: R10.2 Pelvic and perineal pain (principal); M25.562 Pain in left knee; M25.559 Pain in unspecified hip; R07.89 Other chest pain
CPT/HCPCS: 71046; 73502; 73562

== ENCOUNTER → 2021-09-29 07:02 | Outpatient (CLI) | payer MEDICARE, OTHER, SELFPAY ==
[2021-09-29 08:57] LABS: Add Manual Diff / Slide Review NO; Basophils Absolute Auto 100 /uL (0-100); Basophils Percent Auto 1.4 % (0-2); Eosinophils Absolute Auto 300 /uL (0-450); Eosinophils Percent Auto 5.4 % (2-4); Hematocrit 37.1 % (36-46); Hemoglobin 12.3 g/dL (12.0-16.0); Lymphocytes Absolute Auto 1300 /uL (1100-4500); Lymphocytes Percent Auto 26.8 % (25-40); Mean Corpuscular Hemoglobin 27.5 PG (26-34); Mean Corpuscular Volume 83.3 fL (80-100); Monocytes Absolute Auto 300 /uL (0-900); Monocytes Percent Auto 6.6 % (3-14); Neutrophils Absolute Auto 3000 /uL (1500-7000); Neutrophils Percent Auto 59.8 % (50-75); Platelet Count 275 X10^3/uL (150-400); Red Blood Cell Count 4.46 X10^6/uL (4.0-5.2)
[2021-09-29 09:29] LABS: Alanine Aminotransferase 16 IU/L (<35); Albumin 4.1 g/dL (3.5-5.0); Albumin Globulin Ratio 1.5 (1.0-2.8); Alkaline Phosphatase 57 U/L (38-126); Aspartate Aminotransferase 20 IU/L (14-36); BUN Creatinine Ratio 28.1 (6-22); Bilirubin Total 0.5 mg/dL (0.2-1.3); Blood Urea Nitrogen 25 mg/dL (7-17); Calcium 8.9 mg/dL (8.4-10.2); Carbon Dioxide 28 mmol/L (22-32); Chloride 105 mmol/L (98-107); Cholesterol 194 mg/dL (140-199); Estimated Glomerular Filt Rate > 60 mL/min (>60); Globulin 2.8 g/dL (1.7-4.1); Glucose 114 mg/dL (80-110); HDL Cholesterol 53 mg/dL (40-60); HEMOLYSIS < 15 (0-50); LDL Cholesterol Calculated 116 mg/dL (<100); Potassium 4.1 mmol/L (3.4-5.1); Sodium 141 mmol/L (137-145); Total Protein 6.9 g/dL (6.3-8.2); Triglycerides 124 mg/dL (35-150)
[2021-09-29 10:45] LABS: Creatinine Urine Random 192.9 mg/dL
[2021-09-29 10:47] LABS: Microalbumi Creatinin Ratio Ur 12.4 ug/mg CR (<30); Microalbumin Urine Random 2.4 mg/dL (0-1.6)
[2021-09-29 13:58] LABS: Hemoglobin A1C% w Est Avg Glu 6.3 % (4.0-6.0)
== END ==
PROVIDERS: PCP Family Medicine; Referring Provider Family Medicine; Visit Provider Family Medicine
DX: I10 Essential (primary) hypertension (principal); R73.09 Other abnormal glucose; E78.00 Pure hypercholesterolemia, unspecified; I67.9 Cerebrovascular disease, unspecified; Z13.1 Encounter for screening for diabetes mellitus
CPT/HCPCS: 36415; 80053; 80061; 82043; 82570; 83036; 85025

== ENCOUNTER → 2021-10-24 10:13 | Outpatient (CLI) | payer MEDICARE, OTHER, SELFPAY ==
--- NOTE | 2021-10-24 10:14 | DI.RAD.S_ITS ---
PROCEDURE: XR TIBIA FIBULA LT 2V INDICATIONS: Swelling Left tibia TECHNIQUE: 2 views of the tibia and fibula were acquired. COMPARISON: [facility], CR, XR TIBIA FIBULA RT 2V, 04/16/2020, 12:29. FINDINGS: Bones: No fractures or dislocations. No suspicious bony lesions. Soft tissues: No suspicious soft tissue calcifications or masses. IMPRESSION: No lower leg fracture or dislocation. No suspicious intraosseous lesion. No gross soft tissue abnormalities. Dictated by: Baljeet Berumen M.D. on 10/24/2021 at 12:30 Approved by: Baljeet Berumen M.D. on 10/24/2021 at 12:31
== END ==
PROVIDERS: PCP Family Medicine; Referring Provider Family Medicine; Visit Provider Family Medicine
DX: S89.92XA Unspecified injury of left lower leg, initial encounter; X58.XXXA Exposure to other specified factors, initial encounter
CPT/HCPCS: 73590

== ENCOUNTER → 2021-10-25 11:02 | Outpatient (CLI) | payer MEDICARE, OTHER, SELFPAY ==
--- NOTE | 2021-10-25 11:05 | DI.US.S_ITS ---
PROCEDURE: US PERIP VENOUS LOW EXTREM LT INDICATIONS: CALF PAIN. ?DEEP VEIN THROMBOSIS TECHNIQUE: Real-time imaging, as well as color and pulse Doppler interrogation, were performed of the lower extremity deep veins from the inguinal ligament to the popliteal fossa. COMPARISON: [facility], , [facility] VENOUS LOW EXTREM RT, 04/11/2018, 16:38. FINDINGS: The common femoral, femoral and popliteal veins are normally compressible, and free of intraluminal thrombus. Color and pulse Doppler demonstrate normal phasic intraluminal flow. There is normal augmentation response to distal compression maneuver. A likely Covarrubias's cyst is seen measuring 4.1 x 3.7 x 1.2 cm. At the area of clinical concern, within the left anterior medial calf, there is likely fluid seen along the muscle itself. [id number] generalized soft tissue edema can be seen involving the left medial ankle. IMPRESSION: Negative for deep venous thrombosis. Likely fluid seen along the muscle itself within the anterior medial calf. If clinically appropriate, please consider a follow-up MRI (without and with contrast) for further evaluation (assuming that there is no contraindication). Likely Covarrubias's cyst also seen. Dictated by: Yahir Huynh M.D. on 10/25/2021 at 12:14 Approved by: Yahir uHynh M.D. on 10/25/2021 at 12:16
== END ==
PROVIDERS: PCP Family Medicine; Referring Provider Family Medicine; Visit Provider Family Medicine
DX: I82.409 Acute embolism and thrombosis of unspecified deep veins of unspecified lower extremity (principal)
CPT/HCPCS: 93971

== ENCOUNTER → 2021-11-16 17:58 | Outpatient (CLI) | payer MEDICARE, OTHER, SELFPAY ==
--- NOTE | 2021-11-16 18:03 | DI.MRI.S_ITS ---
PROCEDURE: MR KNEE LT WO CON INDICATIONS: L knee pain TECHNIQUE: Noncontrast sagittal PD fast spin echo and T2 fast spin echo with fat saturation, sagittal 3-D FLASH with fat saturation; coronal T1 spin echo and PD fast spin echo with fat saturation, and axial PD fast spin echo with fat saturation through the knee. COMPARISON: None. FINDINGS: Image quality: Excellent. Menisci: Linear horizontal high T2 signal intensity traverses the inner, middle, and peripheral thirds of the medial meniscal body and posterior horn, demonstrating inferior articular surface extension, indicating horizontal tearing. Lateral meniscus is intact. Cruciate ligaments: The anterior and posterior cruciate ligaments appear intact. Medial structures: The medial collateral ligament appears intact. Visualized portions of the pes anserinus tendons appear normal. Small amount of medial bursal fluid. Lateral structures: The lateral collateral ligament demonstrates mild T2 signal elevation at the femoral origin. The long and short heads of the biceps femoris tendon appear intact. The popliteus tendon appears normal. Iliotibial band appears normal. Anterior structures: The quadriceps and patellar tendons appear intact. Patellar alignment is normal. No femoral trochlear dysplasia or ventral trochlear prominence. No edema in the infrapatellar fat pad. Bones and cartilage: No bone marrow contusions or fractures. Mild tricompartmental periarticular osteophyte formation. Moderate articular cartilage loss diffusely overlies the weight-bearing aspects of the medial femoral condyle and medial tibial plateau. Joint space: There is a small knee joint effusion and a small Covarrubias's cyst. Normal appearing synovial plicae are incidentally noted. IMPRESSION: 1. Medial meniscal tearing. 2. Medial compartment articular cartilage loss. 3. Knee joint effusion and Covarrubias's cyst. 4. Low-grade partial thickness lateral collateral ligament tear. 5. Medial bursitis. Dictated by: Chan Tucker M.D. on 11/17/2021 at 10:53 Approved by: Chan Tucker M.D. on 11/17/2021 at 10:55
--- NOTE | 2021-11-16 18:10 | DI.MRI.S_ITS ---
PROCEDURE: MR LOWER LEG LT WO/W CON INDICATIONS: fluid on lower left calf TECHNIQUE: Noncontrast coronal T1 spin echo and STIR, sagittal T1 spin echo with fat saturation and STIR, axial T1 spin echo and T2 fast spin echo with fat saturation. After the administration of contrast, axial/sagittal/coronal T1 spin echo with fat saturation through the left lower leg. COMPARISON: [facility], CR, XR TIBIA FIBULA LT 2V, 10/24/2021, 10:20. FINDINGS: Image quality: Excellent. Bones: The visualized bone marrow demonstrates normal signal on all sequences. The overlying cortex appears intact. No abnormal intraosseous enhancement. Soft tissues: Nonspecific subcutaneous soft tissue edema is seen over the medial malleolus of uncertain etiology. There is also milder edema within the lateral subcutaneous tissues the mid to lower portion of the lower leg and along the anterior margin of the tibia. No significant soft tissue enhancement is seen. No soft tissue masses are visualized. The scanned muscles demonstrate normal overall bulk and internal signal. There is chronic longitudinal split tearing of the peroneus brevis tendon at the level of the distal fibula. Small medial popliteal cyst. Nonspecific subcutaneous prepatellar soft tissue edema. Internal structures of the knee are better demonstrated on the dedicated knee MRI performed the same time. IMPRESSION: 1. Mild nonspecific subcutaneous soft tissue edema over the medial malleolus. No associated postcontrast enhancement. No focal fluid collection or abscess. Additional areas of mild subcutaneous edema are seen at the anterior and lateral aspects of the lower leg. 2. 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 3. Small medial popliteal cyst. Dictated by: Alberto Putnam M.D. on 11/17/2021 at 10:49 Approved by: Alberto Putnam M.D. on 11/17/2021 at 10:59
== END ==
PROVIDERS: PCP Family Medicine; Referring Provider Family Medicine; Visit Provider Family Medicine
DX: S83.242A Other tear of medial meniscus, current injury, left knee, initial encounter (principal); S86.312A Strain of muscle(s) and tendon(s) of peroneal muscle group at lower leg level, left leg, initial encounter; M71.22 Synovial cyst of popliteal space [Baker], left knee; M25.462 Effusion, left knee; M71.562 Other bursitis, not elsewhere classified, left knee; S83.422A Sprain of lateral collateral ligament of left knee, initial encounter
CPT/HCPCS: 73720; 73721; A9579

== ENCOUNTER 2022-01-22 14:52 | Emergency (ER) | payer MEDICARE, OTHER, SELFPAY ==
[2022-01-22] VITALS (14 sets, daily range): BP systolic 179–195; BP diastolic 88–113; PULSE 65–96; RESP 14–30; TEMP 36.7; O2SAT 96–99; BMI 33.5
--- NOTE | 2022-01-22 15:22 | ED.CHESTPAIN ---
HPI - Chest Pain <Aleisha Lopez PA-C - Last Filed: 01/22/22 18:31> General Chief Complaint: Chest Pain Stated Complaint: [facility] chest wall pain Time Seen by Provider: 01/22/22 14:58 Source: patient Mode of arrival: Ambulatory Limitations: no limitations History of Present Illness HPI narrative: 71-year-old female with past medical history breast cancer, asthma, hypercholesterolemia, hypertension, GERD presents to the ED with worsening chest wall pain. Patient is status post a double mastectomy from 2006, endorses frequent chest wall pain as a sequelae. Patient states that her current pain feels like the same chest wall pain, however is a lot more severe than her past episodes. Patient has been trying to take Advil for the pain and also some hip arthritis and knee injury. Patient states that she stopped the ibuprofen, since it exacerbated her GERD. Patient endorses having a significant GERD problem for the past several years. Patient takes Prilosec for the GERD. Patient is complaining of chest wall pain that is generalized across the chest, with specific sharp pain that she complains of underneath her lips on the left side. Patient denies trouble breathing, fever, chills, nausea, vomiting, abdominal pain, diarrhea, constipation, dysuria, lightheadedness, dizziness, syncope. Related Data Home Medications Medication Instructions Recorded Confirmed aspirin 81 mg tablet,delayed 81 mg PO DAILY 10/03/18 08/15/21 release (Jenifer Low Dose Aspirin) evolocumab 420 mg/3.5 mL mg SUBCUT MONTHLY 09/30/20 08/15/21 subcutaneous wearable injector (Repatha Pushtronex) mometasone 0.1 % topical solution 1 applic topical DAILY 08/15/21 08/15/21 Previous Rx's Medication Instructions Recorded albuterol sulfate 90 mcg/actuation 2 puff inhalation Q4HP PRN 09/30/19 aerosol inhaler (Ventolin HFA) shortness of breath or wheezing #1 inh omeprazole 20 mg capsule,delayed See Rx Instructions .Route 05/12/20 release .COMPLEX #180 caps albuterol sulfate 90 mcg/actuation 1 inh inhalation QID PRN shortness 08/15/20 aerosol inhaler of breath or wheezing #6.7 grams ondansetron 4 mg disintegrating 4 mg PO Q6H PRN nausea and 10/04/20 tablet vomiting #10 tabs losartan 100 mg tablet 100 mg PO DAILY #90 tabs 08/15/21 mometasone 0.1 % topical solution 1 applic topical DAILY 21 days #30 08/15/21 mL hydrochlorothiazide 12.5 mg capsule See Rx Instructions .Route 09/04/21 .COMPLEX #90 caps tamsulosin 0.4 mg capsule See Rx Instructions .Route 01/16/22 .COMPLEX #90 caps Allergies Allergy/AdvReac Type Severity Reaction Status Date / Time Opioids - Morphine Analogues Allergy Unknown Verified 08/15/21 08:51 Review of Systems <Aleisha Lopez PA-C - Last Filed: 01/22/22 18:31> Review of Systems ROS Unobtainable: All systems reviewed & are unremarkable except as noted in HPI and below Constitutional Constitutional: Denies chills, Denies fatigue, Denies fever(s), Denies frequent falls, Denies lethargy and Denies weakness Eyes Eyes: Denies change in vision, Denies eye discharge, Denies irritation and Denies loss of vision ENT Ears, Nose, Mouth, and Throat: Denies change in voice, Denies dizziness, Denies neck pain, Denies sore throat and Denies throat swelling Cardiovascular Cardiovascular: Denies chest pain, Denies irregular heart rhythm, Denies lightheadedness, Denies palpitations, Denies dyspnea, Denies dyspnea on exertion and Denies orthopnea Comments: Chest wall pain Respiratory Respiratory: Denies cough, Denies dyspnea, Denies dyspnea on exertion and Denies wheezing Gastrointestinal Gastrointestinal: Denies abdominal pain, Denies change in bowel habits, Denies diarrhea, Denies nausea and Denies vomiting Genitourinary Genitourinary: Denies hematuria, Denies flank pain, Denies urinary incontinence and Denies urinary urgency Musculoskeletal Musculoskeletal: Denies back pain, Denies muscle weakness, Denies neck pain, Denies numbness and Denies tingling Integumentary/Breasts Skin/Breast: Denies pruritus, Denies erythema, Denies rash and Denies wounds Neurologic Neurologic: Denies behavioral changes, Denies confusion, Denies dizziness, Denies frequent falls, Denies loss of vision, Denies numbness, Denies tingling and Denies weakness Psychiatric Psychiatric: Denies anxiety, Denies behavioral changes, Denies confusion, Denies depression, Denies homicidal ideation and Denies suicidal ideation Endocrine Endocrine: Denies fatigue, Denies flushing and Denies palpitations Hematologic/Lymphatic Hematologic/Lymphatic: Denies easy bruising Allergic/Immunologic Allergic/Immunologic: Denies urticaria, Denies throat swelling and Denies wheezing Patient History <Aleisha Lopez PA-C - Last Filed: 01/22/22 18:31> Medical History (Updated 01/22/22 @ 18:26 by Aleisha Lopez PA-C) Actinic keratosis Asthma Cerebrovascular disease Cervical spine disease (~2002) Chicken pox (~1959) Chronic back pain (~2015) Chronic interstitial cystitis (02/26/17) Ear itch Endometriosis (~2008) Essential hypertension (02/26/17) Fibroids (~2004) Foot pain (~2015) Gastroesophageal reflux disease without esophagitis (02/26/17) Herpes History of malignant neoplasm of breast (02/26/17) Hyperlipidemia Lung nodule (04/09/17) Lymph edema (~2010) Measles (~1959) Osteoarthritis (~2016) Seasonal allergies Skin cancer Stress fracture (~2015) Vaginal atrophy (02/26/17) Surgical History History of breast reconstruction (~2006) History of cataract removal with insertion of prosthetic lens (~2012) History of laminectomy (~2003) History of lumpectomy (~2005) History of mastectomy (~2006) History of oophorectomy (~2008) History of surgery (~2002) Status post appendectomy (~2011) Family History Father Heart disease Brain tumor Parkinson's disease Emphysema, unspecified Mother Heart disease Hypertension Stroke Diabetes mellitus Sister Heart disease Hypertension Diabetes mellitus Social History marital status: number of children: 0 household members: spouse lives independently: Yes caregiver/support person: No housing: house pets and animals: No education level: master's degree occupational status: previously employed current occupational exposures/hazards: No special elizabeth needs: No leisure activities: exercise, reading, volunteer work and other other: travel seatbelt use: always helmet use: Yes water heater temp set < 120 deg: No (125) working smoke detector in home: Yes fire extinguisher in home: Yes carbon monox detector in home: Yes firearms in home: No do you feel safe at home: Yes Smoking Status: Never smoker second hand exposure: No alcohol intake: current substance use type: marijuana during the past year weight has: remained stable well-balanced diet: daily or most days daily servings fruits/ve-4 caffeine: Yes eating out: 1-3 times/week Type(s) of exercise: walking and weight lifting frequency: daily duration: 30-45 minutes/day Smoking Status: Never smoker alcohol intake frequency: a few times a month Substance Use Type: does not use Exam <Aleisha Lopez PA-C - Last Filed: 01/22/22 18:31> Narrative Exam Narrative: Const General:?cooperative, healthy appearing and comfortable [facility] [place] Head:?normal to inspection Ears:?hearing grossly normal bilaterally Nose:?external nose normal Face and sinus:?normal facial exam and sinuses nontender Mouth:?oral mucosae normal Throat:?posterior oropharynx normal Eyes General:?appearance normal, both eyes and all related structures Neck Neck:?normal visual inspection and no lymphadenopathy noted Resp Effort & Inspection:?normal respiratory effort Auscultation:?clear to auscultation bilaterally Cardio Rate:?regular rate Rhythm:?regular rhythm GI Abdomen is soft, nondistended, tender to palpation in the epigastric region. Neuro General:?patient alert, patient awake and patient oriented x3 Initial Vital Signs Initial Vital Signs: Vital Signs Pulse Rate 94 H 01/22/22 14:58 Pulse Oximetry 96 01/22/22 14:58 <Mari Tineo DO - Last Filed: 01/22/22 19:20> Initial Vital Signs Initial Vital Signs: Vital Signs Pulse Rate 94 H 01/22/22 14:58 Pulse Oximetry 96 01/22/22 14:58 Course <Aleisha Lopez PA-C - Last Filed: 01/22/22 18:31> Orders Ordered: ED Orders 01/22/22 15:08 EKG-12 Lead Routine 01/22/22 15:15 CBC Auto Diff [Complete Blood Count AUTO DIFF] Stat CMP [Comprehensive Metabolic Panel] Stat Lipase Stat Troponin & CK Cardiac Panel Stat 01/22/22 15:33 CT abdomen pelvis w con Stat CT angio chest PE protocol Stat 01/22/22 16:11 Urine Culture Stat Urine Culture Stat Urine Microscopic Stat 01/22/22 17:40 Troponin & CK Cardiac Panel Stat Discontinued Medications Acetaminophen (Acetaminophen 325 Mg Tablet) 975 mg PO NOW ONE Stop: 01/22/22 16:37 Last Admin: 01/22/22 16:50 Dose: 975 mg Documented By: BS Al Hydrox/Mg Hydrox/Simethicone 20 ml/ Lidocaine HCl 15 ml 0 ml PO NOW ONE Stop: 01/22/22 15:25 Last Admin: 01/22/22 15:31 Dose: 45 ml Documented By: RB Famotidine (Famotidine 20 Mg/2 Ml Vial) 20 mg IV NOW KEYLA Last Admin: 01/22/22 15:31 Dose: 20 mg Documented By: RB Morphine Sulfate (Morphine 4 Mg/Ml Inj) 4 mg IV NOW ONE Stop: 01/22/22 15:25 Last Admin: 01/22/22 15:45 Dose: Not Given Documented By: RB Ondansetron HCl (Ondansetron 4 Mg/2 Ml Inj) 4 mg IV NOW ONE Stop: 01/22/22 15:25 Last Admin: 01/22/22 15:31 Dose: 4 mg Documented By: RB Vital Signs Vital signs: Vital Signs - 8 hr 01/22/22 15:11 01/22/22 14:58 01/22/22 15:00 Temperature 98.0 F Pulse Rate 93 H 94 H 96 H Respiratory Rate 22 Blood Pressure 190/111 H Pulse Oximetry 97 96 97 Oxygen Delivery Method Room Air 01/22/22 15:10 01/22/22 15:10 01/22/22 15:23 Temperature Pulse Rate 87 88 Respiratory Rate 27 H Blood Pressure 190/111 H Pulse Oximetry 97 Oxygen Delivery Method 01/22/22 15:23 01/22/22 15:30 01/22/22 15:30 Temperature Pulse Rate 85 Respiratory Rate 30 H Blood Pressure 180/88 H 179/96 H Pulse Oximetry 98 Oxygen Delivery Method 01/22/22 15:45 01/22/22 15:45 01/22/22 16:00 Temperature Pulse Rate 73 Respiratory Rate 24 Blood Pressure 192/113 H 195/108 H Pulse Oximetry 96 Oxygen Delivery Method 01/22/22 16:00 01/22/22 16:15 01/22/22 16:15 Temperature Pulse Rate 71 76 Respiratory Rate 15 23 Blood Pressure 183/93 H Pulse Oximetry 96 98 Oxygen Delivery Method 01/22/22 16:36 01/22/22 17:00 01/22/22 17:00 Temperature Pulse Rate 74 68 Respiratory Rate 24 16 Blood Pressure 187/89 H Pulse Oximetry 97 98 Oxygen Delivery Method 01/22/22 17:30 01/22/22 17:30 01/22/22 18:00 Temperature Pulse Rate 70 Respiratory Rate 15 Blood Pressure 187/90 H 189/89 H Pulse Oximetry 99 Oxygen Delivery Method 01/22/22 18:00 01/22/22 18:30 Temperature Pulse Rate 65 66 Respiratory Rate 14 23 Blood Pressure Pulse Oximetry 96 97 Oxygen Delivery Method <Mari Tineo DO - Last Filed: 01/22/22 19:20> Orders Ordered: ED Orders 01/22/22 15:08 EKG-12 Lead Routine 01/22/22 15:15 CBC Auto Diff [Complete Blood Count AUTO DIFF] Stat CMP [Comprehensive Metabolic Panel] Stat Lipase Stat Troponin & CK Cardiac Panel Stat 01/22/22 15:33 CT abdomen pelvis w con Stat CT angio chest PE protocol Stat 01/22/22 16:11 Urine Culture Stat Urine Culture Stat Urine Microscopic Stat 01/22/22 17:40 Troponin & CK Cardiac Panel Stat Discontinued Medications Acetaminophen (Acetaminophen 325 Mg Tablet) 975 mg PO NOW ONE Stop: 01/22/22 16:37 Last Admin: 01/22/22 16:50 Dose: 975 mg Documented By: BS Al Hydrox/Mg Hydrox/Simethicone 20 ml/ Lidocaine HCl 15 ml 0 ml PO NOW ONE Stop: 01/22/22 15:25 Last Admin: 01/22/22 15:31 Dose: 45 ml Documented By: RB Famotidine (Famotidine 20 Mg/2 Ml Vial) 20 mg IV NOW KEYLA Last Admin: 01/22/22 15:31 Dose: 20 mg Documented By: RB Morphine Sulfate (Morphine 4 Mg/Ml Inj) 4 mg IV NOW ONE Stop: 01/22/22 15:25 Last Admin: 01/22/22 15:45 Dose: Not Given Documented By: RB Ondansetron HCl (Ondansetron 4 Mg/2 Ml Inj) 4 mg IV NOW ONE Stop: 01/22/22 15:25 Last Admin: 01/22/22 15:31 Dose: 4 mg Documented By: RB Vital Signs Vital signs: Vital Signs - 8 hr 01/22/22 15:11 01/22/22 14:58 01/22/22 15:00 Temperature 98.0 F Pulse Rate 93 H 94 H 96 H Respiratory Rate 22 Blood Pressure 190/111 H Pulse Oximetry 97 96 97 Oxygen Delivery Method Room Air 01/22/22 15:10 01/22/22 15:10 01/22/22 15:23 Temperature Pulse Rate 87 88 Respiratory Rate 27 H Blood Pressure 190/111 H Pulse Oximetry 97 Oxygen Delivery Method 01/22/22 15:23 01/22/22 15:30 01/22/22 15:30 Temperature Pulse Rate 85 Respiratory Rate 30 H Blood Pressure 180/88 H 179/96 H Pulse Oximetry 98 Oxygen Delivery Method 01/22/22 15:45 01/22/22 15:45 01/22/22 16:00 Temperature Pulse Rate 73 Respiratory Rate 24 Blood Pressure 192/113 H 195/108 H Pulse Oximetry 96 Oxygen Delivery Method 01/22/22 16:00 01/22/22 16:15 01/22/22 16:15 Temperature Pulse Rate 71 76 Respiratory Rate 15 23 Blood Pressure 183/93 H Pulse Oximetry 96 98 Oxygen Delivery Method 01/22/22 16:36 01/22/22 17:00 01/22/22 17:00 Temperature Pulse Rate 74 68 Respiratory Rate 24 16 Blood Pressure 187/89 H Pulse Oximetry 97 98 Oxygen Delivery Method 01/22/22 17:30 01/22/22 17:30 01/22/22 18:00 Temperature Pulse Rate 70 Respiratory Rate 15 Blood Pressure 187/90 H 189/89 H Pulse Oximetry 99 Oxygen Delivery Method 01/22/22 18:00 01/22/22 18:30 Temperature Pulse Rate 65 66 Respiratory Rate 14 23 Blood Pressure Pulse Oximetry 96 97 Oxygen Delivery Method MDM - Chest Pain <Aleisha Lopez PA-C - Last Filed: 01/22/22 18:31> Lab Data Result diagrams: 01/22/22 15:15 01/22/22 15:15 Labs: Lab Results 01/22/22 01/22/22 01/22/22 Range/Units 15:15 15:15 16:11 WBC 6.1 (4.5-11.0) X10^3/uL RBC 4.30 (4.0-5.2) X10^6/uL Hgb 11.8 L (12.0-16.0) g/dL Hct 35.7 L (36-46) % MCV 83.1 (80-100) fL MCH 27.4 (26-34) PG MCHC 33.0 (30-36) % RDW 13.8 (11.6-14.8) % Plt Count 278 (150-400) X10^3/uL Neut % (Auto) 62.3 (50-75) % Lymph % (Auto) 24.1 L (25-40) % [place] % (Auto) 6.8 (3-14) % Eos % (Auto) 5.6 H (2-4) % Baso % (Auto) 1.2 (0-2) % Neut # (Auto) 3800 (9154-3809) /uL Lymph # (Auto) 1500 (2831-0076) /uL [place] # (Auto) 400 (0-900) /uL Eos # (Auto) 300 (0-450) /uL Baso # (Auto) 100 (0-100) /uL Sodium 137 (137-145) mmol/L Potassium 3.6 (3.4-5.1) mmol/L Chloride 101 (98-107) mmol/L Carbon Dioxide 28 (22-32) mmol/L BUN 22 H (7-17) mg/dL Creatinine 0.87 (0.52-1.04) mg/dL Estimated GFR > 60 (>60) mL/min BUN/Creatinine Ratio 25.3 H (6-22) Glucose 127 H (80-110) mg/dL Calcium 8.8 (8.4-10.2) mg/dL Total Bilirubin 0.4 (0.2-1.3) mg/dL AST 27 (14-36) IU/L ALT 28 (<35) IU/L Alkaline Phosphatase 70 (38-126) U/L Total Creatine Kinase 70 (30-135) U/L CK-MB (CK-2) TNP CK-MB (CK-2) Rel Index TNP Troponin I < 0.012 (0.01-0.034) ng/mL Total Protein 7.5 (6.3-8.2) g/dL Albumin 4.2 (3.5-5.0) g/dL Globulin 3.3 (1.7-4.1) g/dL Albumin/Globulin Ratio 1.3 (1.0-2.8) Lipase 196 (23-300) U/L Urine RBC 0-1/hpf (0-5/HPF) Urine WBC 1-5/hpf (0-5/HPF) Urine Bacteria Few (2-10) H (None) Ur Culture Indicated? Specimen cultured 01/22/22 Range/Units 17:40 WBC (4.5-11.0) X10^3/uL RBC (4.0-5.2) X10^6/uL Hgb (12.0-16.0) g/dL Hct (36-46) % MCV (80-100) fL MCH (26-34) PG MCHC (30-36) % RDW (11.6-14.8) % Plt Count (150-400) X10^3/uL Neut % (Auto) (50-75) % Lymph % (Auto) (25-40) % [place] % (Auto) (3-14) % Eos % (Auto) (2-4) % Baso % (Auto) (0-2) % Neut # (Auto) (7227-4577) /uL Lymph # (Auto) (9206-5960) /uL [place] # (Auto) (0-900) /uL Eos # (Auto) (0-450) /uL Baso # (Auto) (0-100) /uL Sodium (137-145) mmol/L Potassium (3.4-5.1) mmol/L Chloride (98-107) mmol/L Carbon Dioxide (22-32) mmol/L BUN (7-17) mg/dL Creatinine (0.52-1.04) mg/dL Estimated GFR (>60) mL/min BUN/Creatinine Ratio (6-22) Glucose (80-110) mg/dL Calcium (8.4-10.2) mg/dL Total Bilirubin (0.2-1.3) mg/dL AST (14-36) IU/L ALT (<35) IU/L Alkaline Phosphatase (38-126) U/L Total Creatine Kinase 65 (30-135) U/L CK-MB (CK-2) TNP CK-MB (CK-2) Rel Index TNP Troponin I < 0.012 (0.01-0.034) ng/mL Total Protein (6.3-8.2) g/dL Albumin (3.5-5.0) g/dL Globulin (1.7-4.1) g/dL Albumin/Globulin Ratio (1.0-2.8) Lipase (23-300) U/L Urine RBC (0-5/HPF) Urine WBC (0-5/HPF) Urine Bacteria (None) Ur Culture Indicated? Urine Dip Bedside Urine Glucose Negative Bedside Urine Bilirubin - Negative Bedside Urine Ketone - Negative Urine Specific [place] 1.010 Bedside Urine Occult Blood - Negative Bedside Urine pH 6.0 Bedside Urine Protein - Negative Bedside Urine Urobilinogen - Negative Bedside Urine Nitrite - Negative Bedside Urine Leukocytes +/- [address] scan - abdomen/pelvis: Radiologist's Impression: PROCEDURE:? CT ABDOMEN PELVIS W CON ? INDICATIONS:? Epigastric pain ? TECHNIQUE:? After the administration of IV contrast, axial sections were acquired from the lung bases to the pubic symphysis.? Coronal and sagittal reformats were performed.? For radiation dose reduction, the following was used:? automated exposure control, adjustment of mA and/or kV according to patient size. ? COMPARISON:? None. ? FINDINGS:? Image quality:? Excellent.? ? Lung bases:? Unremarkable.? ? Heart:? No significant findings. ? ? ABDOMEN: Liver:? Liver is mildly enlarged with steatosis. Gallbladder:? Unremarkable.? ? Biliary ducts:? Unremarkable.? ? Pancreas:? Unremarkable.? ? Spleen:? Unremarkable.? ? Adrenal Glands:? Unremarkable.? ? Kidneys and Ureters:? Unremarkable.? ? ? Stomach and Bowel:? Stomach, small bowel loops, and colon are unremarkable.? Prominent hiatal hernia.? Scattered colonic diverticula without associated inflammatory change. Peritoneum:? No abnormal intraperitoneal fluid.? No free air.? ? Ventral Wall: ? No hernia.? Abdominal Nodes:? No retroperitoneal or mesenteric adenopathy by size criteria.? Vessels:? Aorta and inferior vena cava are normal in size.? ? PELVIS: Pelvic Organs:? Unremarkable.? ? Bladder:? Unremarkable.? ? Pelvic Nodes: No enlarged lymph nodes.? Miscellaneous: No inguinal hernias are seen. ? ? ? Bones:? Unremarkable.? IMPRESSION:? ? Prominent hiatal hernia. ? Diverticulosis. ? ? Dictated by: Cecy Caba M.D. on 01/22/2022 at 16:49 ? ? Approved by: Cecy Caba M.D. on 01/22/2022 at 16:51 ? CT scan - chest: Radiologist's Impression: PROCEDURE:? CT ANGIO CHEST PE PROTOCOL ? INDICATIONS:? inspirational CP ? TECHNIQUE:? After the administration of intravenous contrast, 2 mm thick sections acquired from the pulmonary apices to the posterior costophrenic angles.? 3-dimensional maximum intensity projection (MIP) coronal and sagittal reformats were then acquired through the thorax.? For radiation dose reduction, the following was used:? automated exposure control, adjustment of mA and/or kV according to patient size.? ? COMPARISON:? None. ? FINDINGS:? Image quality:? Excellent.? ? Pulmonary arteries:? Pulmonary arteries are normal in size, and demonstrate no intraluminal filling defects to suggest central pulmonary embolism.? ? Lungs and pleura:? Dependent changes are noted within the lung bases.? Central and peripheral airways are patent.? ? Mediastinum:? Heart size is normal, without pericardial effusion.? No mediastinal or hilar adenopathy.? Thoracic aorta is normal in caliber and enhancement.? Esophagus is normal in caliber, arch hiatal hernia.? ? Bones and chest wall:? No suspicious bony lesions.? Ribs and thoracic spine appear intact throughout.? Thyroid gland is unremarkable.? No axillary or supraclavicular adenopathy.? ? Abdomen:? Visualized upper abdominal solid organs appear normal in the early arterial phase of enhancement.? ? IMPRESSION:? ? Mild dependent changes at the bases possibly related to atelectasis. ? No pulmonary embolism. ? ? Dictated by: Cecy Caba M.D. on 01/22/2022 at 16:47 ? ? Approved by: Cecy Caba M.D. on 01/22/2022 at 16:49 ? [facility] Narrative Medical decision making narrative: 71-year-old female with past medical history breast cancer, asthma, hypercholesterolemia, hypertension, GERD presents to the ED with worsening chest wall pain. Concern for ACS versus GERD versus gastritis versus chest wall pain from mastectomy versus PE versus malignancy versus other. Will obtain labs, troponin, chest x-ray, EKG, CT PE, CT abdomen pelvis. Will give Zofran, morphine, GI cocktail, Pepcid AC for symptoms. Will reassess. Workup was unremarkable. CT abdomen did show a hiatal hernia that is worsening. Chest x-ray, EKG, troponin x2 were negative. CT chest without acute findings. Discussed findings with patient. Recommend trial of Pepcid AC twice daily for 14 days. Recommend Tylenol for chest wall pain. Recommend follow-up with GI, surgery, PCP for follow-up. ED return precautions were discussed with patient. Patient verbalized understanding. <Mari Alejandra Rivka, DO - Last Filed: 01/22/22 19:20> Lab Data Labs: Lab Results 01/22/22 01/22/22 01/22/22 Range/Units 15:15 15:15 16:11 WBC 6.1 (4.5-11.0) X10^3/uL RBC 4.30 (4.0-5.2) X10^6/uL Hgb 11.8 L (12.0-16.0) g/dL Hct 35.7 L (36-46) % MCV 83.1 (80-100) fL MCH 27.4 (26-34) PG MCHC 33.0 (30-36) % RDW 13.8 (11.6-14.8) % Plt Count 278 (150-400) X10^3/uL Neut % (Auto) 62.3 (50-75) % Lymph % (Auto) 24.1 L (25-40) % [place] % (Auto) 6.8 (3-14) % Eos % (Auto) 5.6 H (2-4) % Baso % (Auto) 1.2 (0-2) % Neut # (Auto) 3800 (7906-0545) /uL Lymph # (Auto) 1500 (9212-4556) /uL [place] # (Auto) 400 (0-900) /uL Eos # (Auto) 300 (0-450) /uL Baso # (Auto) 100 (0-100) /uL Sodium 137 (137-145) mmol/L Potassium 3.6 (3.4-5.1) mmol/L Chloride 101 (98-107) mmol/L Carbon Dioxide 28 (22-32) mmol/L BUN 22 H (7-17) mg/dL Creatinine 0.87 (0.52-1.04) mg/dL Estimated GFR > 60 (>60) mL/min BUN/Creatinine Ratio 25.3 H (6-22) Glucose 127 H (80-110) mg/dL Calcium 8.8 (8.4-10.2) mg/dL Total Bilirubin 0.4 (0.2-1.3) mg/dL AST 27 (14-36) IU/L ALT 28 (<35) IU/L Alkaline Phosphatase 70 (38-126) U/L Total Creatine Kinase 70 (30-135) U/L CK-MB (CK-2) TNP CK-MB (CK-2) Rel Index TNP Troponin I < 0.012 (0.01-0.034) ng/mL Total Protein 7.5 (6.3-8.2) g/dL Albumin 4.2 (3.5-5.0) g/dL Globulin 3.3 (1.7-4.1) g/dL Albumin/Globulin Ratio 1.3 (1.0-2.8) Lipase 196 (23-300) U/L Urine RBC 0-1/hpf (0-5/HPF) Urine WBC 1-5/hpf (0-5/HPF) Urine Bacteria Few (2-10) H (None) Ur Culture Indicated? Specimen cultured 01/22/22 Range/Units 17:40 WBC (4.5-11.0) X10^3/uL RBC (4.0-5.2) X10^6/uL Hgb (12.0-16.0) g/dL Hct (36-46) % MCV (80-100) fL MCH (26-34) PG MCHC (30-36) % RDW (11.6-14.8) % Plt Count (150-400) X10^3/uL Neut % (Auto) (50-75) % Lymph % (Auto) (25-40) % [place] % (Auto) (3-14) % Eos % (Auto) (2-4) % Baso % (Auto) (0-2) % Neut # (Auto) (5603-4830) /uL Lymph # (Auto) (1140-5344) /uL [place] # (Auto) (0-900) /uL Eos # (Auto) (0-450) /uL Baso # (Auto) (0-100) /uL Sodium (137-145) mmol/L Potassium (3.4-5.1) mmol/L Chloride (98-107) mmol/L Carbon Dioxide (22-32) mmol/L BUN (7-17) mg/dL Creatinine (0.52-1.04) mg/dL Estimated GFR (>60) mL/min BUN/Creatinine Ratio (6-22) Glucose (80-110) mg/dL Calcium (8.4-10.2) mg/dL Total Bilirubin (0.2-1.3) mg/dL AST (14-36) IU/L ALT (<35) IU/L Alkaline Phosphatase (38-126) U/L Total Creatine Kinase 65 (30-135) U/L CK-MB (CK-2) TNP CK-MB (CK-2) Rel Index TNP Troponin I < 0.012 (0.01-0.034) ng/mL Total Protein (6.3-8.2) g/dL Albumin (3.5-5.0) g/dL Globulin (1.7-4.1) g/dL Albumin/Globulin Ratio (1.0-2.8) Lipase (23-300) U/L Urine RBC (0-5/HPF) Urine WBC (0-5/HPF) Urine Bacteria (None) Ur Culture Indicated? Urine Dip Bedside Urine Glucose Negative Bedside Urine Bilirubin - Negative Bedside Urine Ketone - Negative Urine Specific [place] 1.010 Bedside Urine Occult Blood - Negative Bedside Urine pH 6.0 Bedside Urine Protein - Negative Bedside Urine Urobilinogen - Negative Bedside Urine Nitrite - Negative Bedside Urine Leukocytes +/- 15 Esterase ECG Data Attestation: I personally reviewed and interpreted this ECG as follows: Prior ECG tracings: available for review Interpretation: Sinus rhythm nonspecific, rate 84 MS 150 QRS is 76 QTC 437. Patient does not show any acute ST changes appreciated. In comparison to prior from 10/04/2020. Discharge Plan Departure Patient Disposition: Home Clinical Impression: Chest wall pain Instructions: DI for Atypical Chest Pain Activity Restrictions/Additional Instructions: You were evaluated in the ED today for chest wall pain. Your labs, EKG, chest x-ray, CT abdomen pelvis, CT chest did not show any acute findings. The only finding from the CT abdomen was that your hiatal hernia has become larger, which could be contributing to your worsening GERD. Yogurt symptoms did improve with Pepcid and a GI cocktail. You may trial Pepcid twice a day for 14 days for GERD controlled. You may continue to take Tylenol for the chest wall pain. Please follow-up with your PCP for further evaluation, referral to surgery and/or GI. Return to the ED if your symptoms worsen, you are persistently vomiting, you were unable to keep down liquids/solids, have trouble breathing. Prescriptions: No Action aspirin [Jenifer Low Dose Aspirin] 81 mg tablet,delayed release (DR/EC) 81 mg PO DAILY albuterol sulfate 90 mcg/actuation HFA aerosol inhaler 1 inh inhalation QID PRN (Reason: shortness of breath or wheezing) Qty: 6.7 0RF Repatha Pushtronex 420 mg/3.5 mL wearable injector SUBCUT MONTHLY mometasone 0.1 % solution 1 applic topical DAILY mometasone 0.1 % solution 1 applic TOP DAILY 21 Days Qty: 30 2RF losartan 100 mg tablet 100 mg PO DAILY Qty: 90 1RF albuterol sulfate [Ventolin HFA] 90 mcg/actuation HFA aerosol inhaler 2 puff inhalation Q4HP PRN (Reason: shortness of breath or wheezing) Qty: 1 2RF omeprazole 20 mg capsule,delayed release(DR/EC) See Rx Instructions .ROUTE .COMPLEX Qty: 180 1RF Dose Instruction: take 1 capsule by mouth twice a day Rx Instructions: take 1 capsule by mouth twice a day hydrochlorothiazide 12.5 mg capsule See Rx Instructions .ROUTE .COMPLEX Qty: 90 3RF Dose Instruction: TAKE ONE CAPSULE BY MOUTH EVERY DAY Rx Instructions: TAKE ONE CAPSULE BY MOUTH EVERY DAY tamsulosin 0.4 mg capsule See Rx Instructions .ROUTE .COMPLEX Qty: 90 0RF Dose Instruction: TAKE 1 CAPSULE BY MOUTH EVERY DAY Rx Instructions: TAKE 1 CAPSULE BY MOUTH EVERY DAY ondansetron 4 mg tablet,disintegrating 4 mg PO Q6H PRN (Reason: nausea and vomiting) Qty: 10 0RF Referrals: Elisabet Durán MD [Primary Care Provider] - Visit Report Forms: Patient Portal/API
[2022-01-22] MEDS: FAMOTIDINE 20 MG/2 ML VIAL IV (15:31)
[2022-01-22] MEDS: MAG HYDROX/ALUMINUM/SIMETH SUS 20 ML, LIDOCAINE VISCOUS 2% 15 ML PO (15:31)
[2022-01-22] MEDS: ONDANSETRON 4 MG/2 ML INJ IV (15:31)
--- NOTE | 2022-01-22 15:33 | DI.CT.S_ITS ---
PROCEDURE: CT ANGIO CHEST PE PROTOCOL INDICATIONS: inspirational CP TECHNIQUE: After the administration of intravenous contrast, 2 mm thick sections acquired from the pulmonary apices to the posterior costophrenic angles. 3-dimensional maximum intensity projection (MIP) coronal and sagittal reformats were then acquired through the thorax. For radiation dose reduction, the following was used: automated exposure control, adjustment of mA and/or kV according to patient size. COMPARISON: None. FINDINGS: Image quality: Excellent. Pulmonary arteries: Pulmonary arteries are normal in size, and demonstrate no intraluminal filling defects to suggest central pulmonary embolism. Lungs and pleura: Dependent changes are noted within the lung bases. Central and peripheral airways are patent. Mediastinum: Heart size is normal, without pericardial effusion. No mediastinal or hilar adenopathy. Thoracic aorta is normal in caliber and enhancement. Esophagus is normal in caliber, arch hiatal hernia. Bones and chest wall: No suspicious bony lesions. Ribs and thoracic spine appear intact throughout. Thyroid gland is unremarkable. No axillary or supraclavicular adenopathy. Abdomen: Visualized upper abdominal solid organs appear normal in the early arterial phase of enhancement. IMPRESSION: Mild dependent changes at the bases possibly related to atelectasis. No pulmonary embolism. Dictated by: Cecy Caba M.D. on 01/22/2022 at 16:47 Approved by: Cecy Caba M.D. on 01/22/2022 at 16:49
--- NOTE | 2022-01-22 15:33 | DI.CT.S_ITS ---
PROCEDURE: CT ABDOMEN PELVIS W CON INDICATIONS: Epigastric pain TECHNIQUE: After the administration of IV contrast, axial sections were acquired from the lung bases to the pubic symphysis. Coronal and sagittal reformats were performed. For radiation dose reduction, the following was used: automated exposure control, adjustment of mA and/or kV according to patient size. COMPARISON: None. FINDINGS: Image quality: Excellent. Lung bases: Unremarkable. Heart: No significant findings. ABDOMEN: Liver: Liver is mildly enlarged with steatosis. Gallbladder: Unremarkable. Biliary ducts: Unremarkable. Pancreas: Unremarkable. Spleen: Unremarkable. Adrenal Glands: Unremarkable. Kidneys and Ureters: Unremarkable. Stomach and Bowel: Stomach, small bowel loops, and colon are unremarkable. Prominent hiatal hernia. Scattered colonic diverticula without associated inflammatory change. Peritoneum: No abnormal intraperitoneal fluid. No free air. Ventral Wall: No hernia. Abdominal Nodes: No retroperitoneal or mesenteric adenopathy by size criteria. Vessels: Aorta and inferior vena cava are normal in size. PELVIS: Pelvic Organs: Unremarkable. Bladder: Unremarkable. Pelvic Nodes: No enlarged lymph nodes. Miscellaneous: No inguinal hernias are seen. Bones: Unremarkable. IMPRESSION: Prominent hiatal hernia. Diverticulosis. Dictated by: Cecy Caba M.D. on 01/22/2022 at 16:49 Approved by: Cecy Caba M.D. on 01/22/2022 at 16:51
[2022-01-22 16:11] LABS: Add Manual Diff / Slide Review NO; Basophils Absolute Auto 100 /uL (0-100); Basophils Percent Auto 1.2 % (0-2); Eosinophils Absolute Auto 300 /uL (0-450); Eosinophils Percent Auto 5.6 % (2-4); Hematocrit 35.7 % (36-46); Hemoglobin 11.8 g/dL (12.0-16.0); Lymphocytes Absolute Auto 1500 /uL (1100-4500); Lymphocytes Percent Auto 24.1 % (25-40); Mean Corpuscular Hemoglobin 27.4 PG (26-34); Mean Corpuscular Volume 83.1 fL (80-100); Monocytes Absolute Auto 400 /uL (0-900); Monocytes Percent Auto 6.8 % (3-14); Neutrophils Absolute Auto 3800 /uL (1500-7000); Neutrophils Percent Auto 62.3 % (50-75); Platelet Count 278 X10^3/uL (150-400); Red Cell Distribution Width 13.8 % (11.6-14.8); White Blood Cell Count 6.1 X10^3/uL (4.5-11.0)
[2022-01-22 16:15] LABS: Alanine Aminotransferase 28 IU/L (<35); Albumin 4.2 g/dL (3.5-5.0); Albumin Globulin Ratio 1.3 (1.0-2.8); Alkaline Phosphatase 70 U/L (38-126); Aspartate Aminotransferase 27 IU/L (14-36); BUN Creatinine Ratio 25.3 (6-22); Bilirubin Total 0.4 mg/dL (0.2-1.3); Blood Urea Nitrogen 22 mg/dL (7-17); Calcium 8.8 mg/dL (8.4-10.2); Carbon Dioxide 28 mmol/L (22-32); Chloride 101 mmol/L (98-107); Creatine Kinase 70 U/L (30-135); Estimated Glomerular Filt Rate > 60 mL/min (>60); Globulin 3.3 g/dL (1.7-4.1); Glucose 127 mg/dL (80-110); HEMOLYSIS < 15 (0-50); Lipase 196 U/L (23-300); Potassium 3.6 mmol/L (3.4-5.1); Sodium 137 mmol/L (137-145); Total Protein 7.5 g/dL (6.3-8.2)
[2022-01-22 16:27] LABS: Troponin I < 0.012 ng/mL (0.01-0.034)
[2022-01-22] MEDS: ACETAMINOPHEN 325 MG TABLET 975 MG PO (16:50)
[2022-01-22 17:07] LABS: Bacteria Urine Few (2-10); Culture Indicated Urine Specimen Cultured; RBC Urine 0-1/HPF (0-5/HPF); WBC Urine 1-5/HPF (0-5/HPF)
[2022-01-22 18:01] LABS: Creatine Kinase 65 U/L (30-135)
[2022-01-22 18:14] LABS: Troponin I < 0.012 ng/mL (0.01-0.034)
== END 2022-01-22 18:37 | disposition home or self-care (01) ==
PROVIDERS: Emergency Provider Student in an Organized Health Care Education/Training Program; PCP Family Medicine
DX: R07.89 Other chest pain (principal); R10.13 Epigastric pain
CPT/HCPCS: 36415; 71275; 74177; 80053; 81003; 81015; 82550; 83690; 84484; 85025; 87086; 93005; 93010; 96374; 96375; 99284; J2405; Q9967

== ENCOUNTER → 2022-05-09 06:58 | Outpatient (CLI) | payer MEDICARE, OTHER, SELFPAY ==
[2022-05-09 09:50] LABS: Cholesterol 135 mg/dL (140-199); HDL Cholesterol 56 mg/dL (40-60); LDL Cholesterol Calculated 57 mg/dL (<100); Triglycerides 108 mg/dL (35-150)
== END ==
PROVIDERS: PCP Family Medicine; Referring Provider Family Medicine; Visit Provider Family Medicine
DX: E78.00 Pure hypercholesterolemia, unspecified (principal); E78.5 Hyperlipidemia, unspecified
CPT/HCPCS: 36415; 80061

== ENCOUNTER 2022-06-07 13:58 | Emergency (ER) | payer MEDICARE, OTHER, SELFPAY ==
[2022-06-07] VITALS (7 sets, daily range): BP systolic 142–183; BP diastolic 70–84; PULSE 68–80; RESP 16–24; TEMP 36.7; O2SAT 97–99; BMI 33.1
--- NOTE | 2022-06-07 14:14 | DI.RAD.S_ITS ---
PROCEDURE: XR CHEST 1V INDICATIONS: chest pain TECHNIQUE: One view of the chest was acquired. COMPARISON: [facility], CR, XR CHEST 2V, 08/15/2021, 9:37. FINDINGS: Surgical changes and devices: Surgical clips are seen in left axilla and bilateral breasts. Lungs and pleura: Lungs are clear. No pleural effusions or pneumothorax. Mediastinum: Mediastinal contours appear normal. Heart size is normal. Bones and chest wall: No suspicious bony lesions. Overlying soft tissues appear unremarkable. IMPRESSION: No acute cardiopulmonary pathology. Dictated by: Baljeet Berumen M.D. on 06/07/2022 at 14:56 Approved by: Baljeet Berumen M.D. on 06/07/2022 at 14:56
[2022-06-07 14:43] LABS: Add Manual Diff / Slide Review NO; Basophils Absolute Auto 100 /uL (0-100); Eosinophils Absolute Auto 600 /uL (0-450); Eosinophils Percent Auto 7.7 % (2-4); Hematocrit 37.2 % (36-46); Hemoglobin 12.5 g/dL (12.0-16.0); Lymphocytes Absolute Auto 1400 /uL (1100-4500); Lymphocytes Percent Auto 18.3 % (25-40); Mean Corpuscular HGB Conc 33.5 % (30-36); Mean Corpuscular Hemoglobin 27.8 PG (26-34); Monocytes Absolute Auto 500 /uL (0-900); Monocytes Percent Auto 6.9 % (3-14); Neutrophils Absolute Auto 5100 /uL (1500-7000); Neutrophils Percent Auto 66.1 % (50-75); Platelet Count 250 X10^3/uL (150-400); Red Blood Cell Count 4.48 X10^6/uL (4.0-5.2); Red Cell Distribution Width 13.8 % (11.6-14.8); White Blood Cell Count 7.7 X10^3/uL (4.5-11.0)
[2022-06-07 14:48] LABS: INR 1.1 (0.9-1.3); Prothrombin Time 12.4 SECONDS (10.1-12.7)
[2022-06-07 14:51] LABS: PTT Partial Thromboplastin Tim 32 SECONDS (26-36)
[2022-06-07 14:52] LABS: Alanine Aminotransferase 19 IU/L (<35); Albumin 4.4 g/dL (3.5-5.0); Albumin Globulin Ratio 1.3 (1.0-2.8); Alkaline Phosphatase 74 U/L (38-126); Aspartate Aminotransferase 22 IU/L (14-36); BUN Creatinine Ratio 27.7 (6-22); Bilirubin Total 0.6 mg/dL (0.2-1.3); Blood Urea Nitrogen 23 mg/dL (7-17); Calcium 9.4 mg/dL (8.4-10.2); Carbon Dioxide 30 mmol/L (22-32); Chloride 102 mmol/L (98-107); Creatine Kinase 78 U/L (30-135); Estimated Glomerular Filt Rate > 60 mL/min (>60); Globulin 3.4 g/dL (1.7-4.1); Glucose 103 mg/dL (80-110); HEMOLYSIS < 15 (0-50); Lipase 157 U/L (23-300); Potassium 3.5 mmol/L (3.4-5.1); Sodium 140 mmol/L (137-145); Total Protein 7.8 g/dL (6.3-8.2)
[2022-06-07 15:04] LABS: Troponin I < 0.012 ng/mL (0.01-0.034)
--- NOTE | 2022-06-07 15:24 | ED_ITS ---
HPI - Chest Pain <Virginie Resendez PA-C - Last Filed: 06/07/22 18:29> General Chief Complaint: Chest Pain Stated Complaint: sent by DR /GERD/cough/albuterol not working Time Seen by Provider: 06/07/22 14:20 Source: patient Mode of arrival: Ambulatory Limitations: no limitations History of Present Illness HPI narrative: 71-year-old female with a history of chronic GERD and chronic hiatal hernia presents with concern for worsening GERD symptoms and hernia pain. Patient was sent by her primary care provider states that she called her but is unable to get in to be seen. Patient endorses worsening symptoms for the past 2-3 months however last night her symptoms became quite severe she has been having worsening coughing at night has been sleeping on multiple pillows and since last night has been feeling a tightness sensation in her chest and like it is hard to get a deep breath she says ?It feels like the stomach acid has gone into my lungs. She states she does use an albuterol inhaler sometimes for seasonal allergies and tried this 8 times yesterday which did not improve her symptoms. She also notes that her throat and esophagus have become irritated and she is had a change in her voice since last night. She says she is taking her regular medications and also taking a lot of Tums last night she thinks she took maybe 8 or 10 Tums. She denies recent weight gain or shortness of breath with exertion. Also denies recent URI symptoms such as cough or rhinorrhea. Related Data Home Medications Medication Instructions Recorded Confirmed aspirin 81 mg tablet,delayed 81 mg PO DAILY 10/03/18 08/15/21 release (Jenifer Low Dose Aspirin) evolocumab 420 mg/3.5 mL mg SUBCUT MONTHLY 09/30/20 08/15/21 subcutaneous wearable injector (Repatha Pushtronex) mometasone 0.1 % topical solution 1 applic topical DAILY 08/15/21 08/15/21 Previous Rx's Medication Instructions Recorded albuterol sulfate 90 mcg/actuation 2 puff inhalation Q4HP PRN 09/30/19 aerosol inhaler (Ventolin HFA) shortness of breath or wheezing #1 inh omeprazole 20 mg capsule,delayed See Rx Instructions .Route 05/12/20 release .COMPLEX #180 caps albuterol sulfate 90 mcg/actuation 1 inh inhalation QID PRN shortness 08/15/20 aerosol inhaler of breath or wheezing #6.7 grams ondansetron 4 mg disintegrating 4 mg PO Q6H PRN nausea and 10/04/20 tablet vomiting #10 tabs mometasone 0.1 % topical solution 1 applic topical DAILY 21 days #30 08/15/21 mL hydrochlorothiazide 12.5 mg capsule See Rx Instructions .Route 09/04/21 .COMPLEX #90 caps losartan 100 mg tablet See Rx Instructions .Route 02/09/22 .COMPLEX #90 tabs tamsulosin 0.4 mg capsule See Rx Instructions .Route 04/18/22 .COMPLEX #90 caps Allergies Allergy/AdvReac Type Severity Reaction Status Date / Time Opioids - Morphine Analogues Allergy Unknown Verified 06/07/22 14:14 Patient History <Virginie Resendez PA-C - Last Filed: 06/07/22 18:29> Medical History (Updated 06/07/22 @ 18:08 by Virginie Resendez PA-C) Actinic keratosis Asthma Cerebrovascular disease Cervical spine disease (~2002) Chicken pox (~1959) Chronic back pain (~2015) Chronic interstitial cystitis (02/26/17) Ear itch Endometriosis (~2008) Essential hypertension (02/26/17) Fibroids (~2004) Foot pain (~2015) Gastroesophageal reflux disease without esophagitis (02/26/17) Herpes History of malignant neoplasm of breast (02/26/17) Hyperlipidemia Lung nodule (04/09/17) Lymph edema (~2010) Measles (~1959) Osteoarthritis (~2016) Seasonal allergies Skin cancer Stress fracture (~2015) Vaginal atrophy (02/26/17) Surgical History History of breast reconstruction (~2006) History of cataract removal with insertion of prosthetic lens (~2012) History of laminectomy (~2003) History of lumpectomy (~2005) History of mastectomy (~2006) History of oophorectomy (~2008) History of surgery (~2002) Status post appendectomy (~2011) Family History Father Heart disease Brain tumor Parkinson's disease Emphysema, unspecified Mother Heart disease Hypertension Stroke Diabetes mellitus Sister Heart disease Hypertension Diabetes mellitus Social History marital status: number of children: 0 household members: spouse lives independently: Yes caregiver/support person: No housing: house pets and animals: No education level: master's degree occupational status: previously employed current occupational exposures/hazards: No special elizabeth needs: No leisure activities: exercise, reading, volunteer work and other other: travel seatbelt use: always helmet use: Yes water heater temp set < 120 deg: No (125) working smoke detector in home: Yes fire extinguisher in home: Yes carbon monox detector in home: Yes firearms in home: No do you feel safe at home: Yes Smoking Status: Never smoker second hand exposure: No alcohol intake: current substance use type: marijuana during the past year weight has: remained stable well-balanced diet: daily or most days daily servings fruits/ve-4 caffeine: Yes eating out: 1-3 times/week Type(s) of exercise: walking and weight lifting frequency: daily duration: 30-45 minutes/day Smoking Status: Never smoker alcohol intake frequency: a few times a month Substance Use Type: does not use Exam <Virginie Resendez PA-C - Last Filed: 06/07/22 18:29> Narrative Exam Narrative: GENERAL: [71] year old patient appears stated age. Well-developed patient, in mild distress. HEAD: Atraumatic. Normocephalic. EYES: Pupils equal round and reactive. Extraocular motions intact. No scleral icterus. No injection or drainage. ENT: Nose without bleeding, purulent drainage. Throat with mild erythema, without tonsillar hypertrophy or exudate. Airway patent, voice is slightly hoarse. NECK: Trachea midline. Non tender CARDIOVASCULAR: Regular rate and rhythm without murmurs, gallops, or rubs. RESPIRATORY: Clear to auscultation. Breath sounds equal bilaterally. No wheezes, rales, or rhonchi. GASTROINTESTINAL: Abdomen soft, non-tender, nondistended. EXTREMITIES: No edema or joint tenderness. BACK: Nontender without deformity or crepitance. No flank tenderness. NEURO: AOx3. SKIN: No rash or erythema of visible areas Initial Vital Signs Initial Vital Signs: Vital Signs Temperature 98.0 F 06/07/22 14:09 Pulse Rate 80 06/07/22 14:09 Respiratory Rate 16 06/07/22 14:09 Blood Pressure 145/70 H 06/07/22 14:09 Pulse Oximetry 99 06/07/22 14:09 Oxygen Delivery Method Room Air 06/07/22 14:09 <Nuris Chung DO - Last Filed: 06/08/22 08:09> Initial Vital Signs Initial Vital Signs: Vital Signs Temperature 98.0 F 06/07/22 14:09 Pulse Rate 80 06/07/22 14:09 Respiratory Rate 16 06/07/22 14:09 Blood Pressure 145/70 H 06/07/22 14:09 Pulse Oximetry 99 06/07/22 14:09 Oxygen Delivery Method Room Air 06/07/22 14:09 Course <Virginie Resendez PA-C - Last Filed: 06/07/22 18:29> Orders Ordered: Discontinued Medications Al Hydrox/Mg Hydrox/Simethicone 20 ml/ Lidocaine HCl 15 ml 0 ml PO NOW ONE Stop: 06/07/22 15:35 Last Admin: 06/07/22 16:59 Dose: 30 ml Documented By: RYAN Ondansetron HCl (Ondansetron 4 Mg/2 Ml Inj) 4 mg IV NOW ONE Stop: 06/07/22 17:19 Last Admin: 06/07/22 17:24 Dose: Not Given Documented By: RYAN Pantoprazole Sodium (Pantoprazole 40 Mg Vial) 40 mg IV NOW ONE Stop: 06/07/22 15:27 Last Admin: 06/07/22 15:33 Dose: 40 mg Documented By: JOCELYN Vital Signs Vital signs: Vital Signs - 8 hr 06/07/22 14:09 Temperature 98.0 F Pulse Rate 80 Respiratory Rate 16 Blood Pressure 145/70 H Pulse Oximetry 99 Oxygen Delivery Method Room Air <Nuris Chung DO - Last Filed: 06/08/22 08:09> Orders Ordered: Discontinued Medications Al Hydrox/Mg Hydrox/Simethicone 20 ml/ Lidocaine HCl 15 ml 0 ml PO NOW ONE Stop: 06/07/22 15:35 Last Admin: 06/07/22 16:59 Dose: 30 ml Documented By: RYAN Ondansetron HCl (Ondansetron 4 Mg/2 Ml Inj) 4 mg IV NOW ONE Stop: 06/07/22 17:19 Last Admin: 06/07/22 17:24 Dose: Not Given Documented By: RYAN Pantoprazole Sodium (Pantoprazole 40 Mg Vial) 40 mg IV NOW ONE Stop: 06/07/22 15:27 Last Admin: 06/07/22 15:33 Dose: 40 mg Documented By: JOCELYN Vital Signs Vital signs: Vital Signs - 8 hr 06/07/22 14:09 Temperature 98.0 F Pulse Rate 80 Respiratory Rate 16 Blood Pressure 145/70 H Pulse Oximetry 99 Oxygen Delivery Method Room Air MDM - Chest Pain <Virginie Resendez PA-C - Last Filed: 06/07/22 18:29> Differential Diagnosis Differential diagnosis: Likely atypical chest pain, chest pain and other (GERD, hiatal hernia) Lab Data Attestation: I reviewed the patient's lab results. 06/07/22 14:36 06/07/22 14:36 Labs: Lab Results 06/07/22 06/07/22 06/07/22 Range/Units 14:36 14:36 14:36 WBC 7.7 (4.5-11.0) X10^3/uL RBC 4.48 (4.0-5.2) X10^6/uL Hgb 12.5 (12.0-16.0) g/dL Hct 37.2 (36-46) % MCV 83.0 (80-100) fL MCH 27.8 (26-34) PG MCHC 33.5 (30-36) % RDW 13.8 (11.6-14.8) % Plt Count 250 (150-400) X10^3/uL Neut % (Auto) 66.1 (50-75) % Lymph % (Auto) 18.3 L (25-40) % [place] % (Auto) 6.9 (3-14) % Eos % (Auto) 7.7 H (2-4) % Baso % (Auto) 1.0 (0-2) % Neut # (Auto) 5100 (6315-5272) /uL Lymph # (Auto) 1400 (2728-9188) /uL [place] # (Auto) 500 (0-900) /uL Eos # (Auto) 600 H (0-450) /uL Baso # (Auto) 100 (0-100) /uL PT 12.4 (10.1-12.7) SECONDS INR 1.1 (0.9-1.3) APTT 32 (26-36) SECONDS Sodium 140 (137-145) mmol/L Potassium 3.5 (3.4-5.1) mmol/L Chloride 102 (98-107) mmol/L Carbon Dioxide 30 (22-32) mmol/L BUN 23 H (7-17) mg/dL Creatinine 0.83 (0.52-1.04) mg/dL Estimated GFR > 60 (>60) mL/min BUN/Creatinine Ratio 27.7 H (6-22) Glucose 103 (80-110) mg/dL Calcium 9.4 (8.4-10.2) mg/dL Magnesium 2.0 (1.6-2.3) mg/dL Total Bilirubin 0.6 (0.2-1.3) mg/dL AST 22 (14-36) IU/L ALT 19 (<35) IU/L Alkaline Phosphatase 74 (38-126) U/L Total Creatine Kinase 78 (30-135) U/L CK-MB (CK-2) TNP CK-MB (CK-2) Rel Index TNP Troponin I < 0.012 (0.01-0.034) ng/mL Total Protein 7.8 (6.3-8.2) g/dL Albumin 4.4 (3.5-5.0) g/dL Globulin 3.4 (1.7-4.1) g/dL Albumin/Globulin Ratio 1.3 (1.0-2.8) Lipase 157 (23-300) U/L 06/07/22 Range/Units 16:42 WBC (4.5-11.0) X10^3/uL RBC (4.0-5.2) X10^6/uL Hgb (12.0-16.0) g/dL Hct (36-46) % MCV (80-100) fL MCH (26-34) PG MCHC (30-36) % RDW (11.6-14.8) % Plt Count (150-400) X10^3/uL Neut % (Auto) (50-75) % Lymph % (Auto) (25-40) % [place] % (Auto) (3-14) % Eos % (Auto) (2-4) % Baso % (Auto) (0-2) % Neut # (Auto) (5231-9841) /uL Lymph # (Auto) (5588-5944) /uL [place] # (Auto) (0-900) /uL Eos # (Auto) (0-450) /uL Baso # (Auto) (0-100) /uL PT (10.1-12.7) SECONDS INR (0.9-1.3) APTT (26-36) SECONDS Sodium (137-145) mmol/L Potassium (3.4-5.1) mmol/L Chloride (98-107) mmol/L Carbon Dioxide (22-32) mmol/L BUN (7-17) mg/dL Creatinine (0.52-1.04) mg/dL Estimated GFR (>60) mL/min BUN/Creatinine Ratio (6-22) Glucose (80-110) mg/dL Calcium (8.4-10.2) mg/dL Magnesium (1.6-2.3) mg/dL Total Bilirubin (0.2-1.3) mg/dL AST (14-36) IU/L ALT (<35) IU/L Alkaline Phosphatase (38-126) U/L Total Creatine Kinase 76 (30-135) U/L CK-MB (CK-2) TNP CK-MB (CK-2) Rel Index TNP Troponin I < 0.012 (0.01-0.034) ng/mL Total Protein (6.3-8.2) g/dL Albumin (3.5-5.0) g/dL Globulin (1.7-4.1) g/dL Albumin/Globulin Ratio (1.0-2.8) Lipase (23-300) U/L Urine Dip Bedside Urine Glucose Negative Bedside Urine Bilirubin - Negative Bedside Urine Ketone - Negative Urine Specific [place] 1.010 Bedside Urine Occult Blood - Negative Bedside Urine pH 6.0 Bedside Urine Protein - Negative Bedside Urine Urobilinogen - Negative Bedside Urine Nitrite - Negative Bedside Urine Leukocytes - Negative Esterase Imaging Data Chest x-ray: My Impression: I agree with radiologist's interpretation Radiologist's Impression: [address] [address] XRay Report Signed Patient: Fartun Fitzgerald MR#: [id number] : 1950 Acct:[id number] Age/Sex: 71 / F Date of Service: 06/07/22 Loc: ED Accession Number: [id number] ?? Procedure: XR chest 1V Ordering Provider: Nuris Chung D.O. PROCEDURE:? XR CHEST 1V ? INDICATIONS:? chest pain ? TECHNIQUE:? One view of the chest was acquired.? ? COMPARISON:? [facility], CR, XR CHEST 2V, 08/15/2021, 9:37. ? FINDINGS:? ? Surgical changes and devices:? Surgical clips are seen in left axilla and bilateral breasts. ? Lungs and pleura:? Lungs are clear.? No pleural effusions or pneumothorax.? ? Mediastinum:? Mediastinal contours appear normal.? Heart size is normal.? ? Bones and chest wall:? No suspicious bony lesions.? Overlying soft tissues appear unremarkable.? ? IMPRESSION:? No acute cardiopulmonary pathology. ? ? Dictated by: Baljeet Berumen M.D. on 06/07/2022 at 14:56 ? ? Approved by: Baljeet Berumen M.D. on 06/07/2022 at 14:56?? ECG Data Attestation: I personally reviewed and interpreted this ECG as follows: Interpretation: Heart rate 68, normal sinus rhythm, QTC 429 milliseconds; EKG also reviewed by Dr. Chung MDM Narrative Medical decision making narrative: Is a well-appearing though slightly uncomfortable 71-year-old female presents with concern for worsening of her GERD symptoms with some chest tightness since last night. Patient's exam and labs today were unremarkable, cardiac workup was pursued given location of her discomfort and she was also sent by PCP for further evaluation for possible cardiac etiology. Repeat troponin was also negative, patient's pain is consistent with her previous episodes of GERD and due to her hiatal hernia--and she did not require pain medication while in the emergency department, her chest x-ray was unremarkable today, her EKG also was not concerning for cardiac etiology. She is scheduled to see Gastroenterology in a few months' time although has had worsening symptoms for 2-3 months. Patient was given Protonix today IV as well as a GI cocktail. Initially did not tolerate the GI cocktail very well however ultimately did state that her symptoms had improved and she was feeling better. Patient is advised to continue her regular home medications including her omeprazole only take Tums as directed or per dosing on the bottle and not more, note is shared with the patient's PCP as well as tunnel elastic operator chainstitch that she is scheduled to see. Patient is advised regarding return precautions, follow-up plan discussed, all questions answered. <Nuris Chung, DO - Last Filed: 06/08/22 08:09> Lab Data Labs: Lab Results 06/07/22 06/07/22 06/07/22 Range/Units 14:36 14:36 14:36 WBC 7.7 (4.5-11.0) X10^3/uL RBC 4.48 (4.0-5.2) X10^6/uL Hgb 12.5 (12.0-16.0) g/dL Hct 37.2 (36-46) % MCV 83.0 (80-100) fL MCH 27.8 (26-34) PG MCHC 33.5 (30-36) % RDW 13.8 (11.6-14.8) % Plt Count 250 (150-400) X10^3/uL Neut % (Auto) 66.1 (50-75) % Lymph % (Auto) 18.3 L (25-40) % [place] % (Auto) 6.9 (3-14) % Eos % (Auto) 7.7 H (2-4) % Baso % (Auto) 1.0 (0-2) % Neut # (Auto) 5100 (3396-6489) /uL Lymph # (Auto) 1400 (0719-6580) /uL [place] # (Auto) 500 (0-900) /uL Eos # (Auto) 600 H (0-450) /uL Baso # (Auto) 100 (0-100) /uL PT 12.4 (10.1-12.7) SECONDS INR 1.1 (0.9-1.3) APTT 32 (26-36) SECONDS Sodium 140 (137-145) mmol/L Potassium 3.5 (3.4-5.1) mmol/L Chloride 102 (98-107) mmol/L Carbon Dioxide 30 (22-32) mmol/L BUN 23 H (7-17) mg/dL Creatinine 0.83 (0.52-1.04) mg/dL Estimated GFR > 60 (>60) mL/min BUN/Creatinine Ratio 27.7 H (6-22) Glucose 103 (80-110) mg/dL Calcium 9.4 (8.4-10.2) mg/dL Magnesium 2.0 (1.6-2.3) mg/dL Total Bilirubin 0.6 (0.2-1.3) mg/dL AST 22 (14-36) IU/L ALT 19 (<35) IU/L Alkaline Phosphatase 74 (38-126) U/L Total Creatine Kinase 78 (30-135) U/L CK-MB (CK-2) TNP CK-MB (CK-2) Rel Index TNP Troponin I < 0.012 (0.01-0.034) ng/mL Total Protein 7.8 (6.3-8.2) g/dL Albumin 4.4 (3.5-5.0) g/dL Globulin 3.4 (1.7-4.1) g/dL Albumin/Globulin Ratio 1.3 (1.0-2.8) Lipase 157 (23-300) U/L 06/07/22 Range/Units 16:42 WBC (4.5-11.0) X10^3/uL RBC (4.0-5.2) X10^6/uL Hgb (12.0-16.0) g/dL Hct (36-46) % MCV (80-100) fL MCH (26-34) PG MCHC (30-36) % RDW (11.6-14.8) % Plt Count (150-400) X10^3/uL Neut % (Auto) (50-75) % Lymph % (Auto) (25-40) % [place] % (Auto) (3-14) % Eos % (Auto) (2-4) % Baso % (Auto) (0-2) % Neut # (Auto) (8084-9989) /uL Lymph # (Auto) (4735-0492) /uL [place] # (Auto) (0-900) /uL Eos # (Auto) (0-450) /uL Baso # (Auto) (0-100) /uL PT (10.1-12.7) SECONDS INR (0.9-1.3) APTT (26-36) SECONDS Sodium (137-145) mmol/L Potassium (3.4-5.1) mmol/L Chloride (98-107) mmol/L Carbon Dioxide (22-32) mmol/L BUN (7-17) mg/dL Creatinine (0.52-1.04) mg/dL Estimated GFR (>60) mL/min BUN/Creatinine Ratio (6-22) Glucose (80-110) mg/dL Calcium (8.4-10.2) mg/dL Magnesium (1.6-2.3) mg/dL Total Bilirubin (0.2-1.3) mg/dL AST (14-36) IU/L ALT (<35) IU/L Alkaline Phosphatase (38-126) U/L Total Creatine Kinase 76 (30-135) U/L CK-MB (CK-2) TNP CK-MB (CK-2) Rel Index TNP Troponin I < 0.012 (0.01-0.034) ng/mL Total Protein (6.3-8.2) g/dL Albumin (3.5-5.0) g/dL Globulin (1.7-4.1) g/dL Albumin/Globulin Ratio (1.0-2.8) Lipase (23-300) U/L Urine Dip Bedside Urine Glucose Negative Bedside Urine Bilirubin - Negative Bedside Urine Ketone - Negative Urine Specific [place] 1.010 Bedside Urine Occult Blood - Negative Bedside Urine pH 6.0 Bedside Urine Protein - Negative Bedside Urine Urobilinogen - Negative Bedside Urine Nitrite - Negative Bedside Urine Leukocytes - Negative Esterase ECG Data Interpretation: Heart rate 68, normal sinus rhythm, QTC 429 milliseconds; EKG also reviewed by Dr. Juliet Chung-sinus rhythm rate 60 [place] interval 160 QRS 82 QTC 420 Q-waves noted in lead [address] changes this is new from previous EKG in 2021, but actually seen on prior EKG in 2020 no T-wave inversion mild artifact noted Discharge Plan Departure Patient Disposition: Home Clinical Impression: Chest pain due to GERD Activity Restrictions/Additional Instructions: Thank you for letting us be part of your care today in the emergency department. We did give you some IV medication to help her ear symptoms as well as try a GI cocktail, it seems like you did not do great with a GI cocktail but I am hopeful that the other medication was helpful. Your labs today were looking okay we checked your cardiac labs and did a cardiac evaluation given your having some symptoms of tightness in your chest since last night. These all looked okay and I suspect that your symptoms are due to your GERD and hiatal hernia. I encourage you to continue your regular medications at home be cautious about excessive use of Tums as this can cause problems with your calcium levels but it is certainly okay to take as directed/per dosage indicated on the bottle. Otherwise I would encourage you to continue your regular medication, given that you have had these worsening symptoms for the last few months it is possible that you would benefit from an increase in your proton pump inhibitor medication. And certainly something to discuss with your primary care provider. You can also talked to them about trying to bump up your GI appointment to sooner. Your chest x-ray today looked okay. There is no evidence of an emergent or life threatening illness at this time, but follow up with your doctor in 1-2 days is recommended nonetheless to continue to rule out serious underlying causes of your symptoms. I have also shared today's note with your tunnel elastic operator chainstitch that you are scheduled to see in August as it seems that your symptoms are worsening and hopefully they are able to get you in sooner, today's note was also shared shared with your PCP Dr. Durán. Please call the office for an appointment. Please return to the Emergency Department for any worsening or persistent symptoms. Please take medications as directed. Prescriptions: No Action aspirin [Jenifer Low Dose Aspirin] 81 mg tablet,delayed release (DR/EC) 81 mg PO DAILY albuterol sulfate 90 mcg/actuation HFA aerosol inhaler 1 inh inhalation QID PRN (Reason: shortness of breath or wheezing) Qty: 6.7 0RF Repatha Pushtronex 420 mg/3.5 mL wearable injector SUBCUT MONTHLY mometasone 0.1 % solution 1 applic topical DAILY mometasone 0.1 % solution 1 applic TOP DAILY 21 Days Qty: 30 2RF albuterol sulfate [Ventolin HFA] 90 mcg/actuation HFA aerosol inhaler 2 puff inhalation Q4HP PRN (Reason: shortness of breath or wheezing) Qty: 1 2RF omeprazole 20 mg capsule,delayed release(DR/EC) See Rx Instructions .ROUTE .COMPLEX Qty: 180 1RF Dose Instruction: take 1 capsule by mouth twice a day Rx Instructions: take 1 capsule by mouth twice a day hydrochlorothiazide 12.5 mg capsule See Rx Instructions .ROUTE .COMPLEX Qty: 90 3RF Dose Instruction: TAKE ONE CAPSULE BY MOUTH EVERY DAY Rx Instructions: TAKE ONE CAPSULE BY MOUTH EVERY DAY losartan 100 mg tablet See Rx Instructions .ROUTE .COMPLEX Qty: 90 0RF Dose Instruction: TAKE 1 TABLET BY MOUTH DAILY Rx Instructions: TAKE 1 TABLET BY MOUTH DAILY tamsulosin 0.4 mg capsule See Rx Instructions .ROUTE .COMPLEX Qty: 90 0RF Dose Instruction: TAKE 1 CAPSULE BY MOUTH EVERY DAY Rx Instructions: TAKE 1 CAPSULE BY MOUTH EVERY DAY ondansetron 4 mg tablet,disintegrating 4 mg PO Q6H PRN (Reason: nausea and vomiting) Qty: 10 0RF Referrals: Malik Blair MD [Non-Staff] - (Worsening GERD/hiatal hernia, seen in ED--GI Appt not until August) Elisabet Durán MD [Primary Care Provider] - Stand Alone Forms: Patient Portal/API <Nuris Chung DO - Last Filed: 06/08/22 08:09> Cosign ED Attending Cosignature Attestation: I was immediately available in the department for consultation. Documentation has been reviewed.
[2022-06-07] MEDS: PANTOPRAZOLE 40 MG VIAL IV (15:33)
[2022-06-07] MEDS: MAG HYDROX/ALUMINUM/SIMETH SUS 20 ML, LIDOCAINE VISCOUS 2% 15 ML PO (16:59)
[2022-06-07 17:17] LABS: Creatine Kinase 76 U/L (30-135)
[2022-06-07 17:30] LABS: Troponin I < 0.012 ng/mL (0.01-0.034)
== END 2022-06-07 18:24 | disposition home or self-care (01) ==
PROVIDERS: Emergency Medicine; Emergency Provider Student in an Organized Health Care Education/Training Program; PCP Family Medicine
DX: R07.89 Other chest pain (principal); K21.9 Gastro-esophageal reflux disease without esophagitis
CPT/HCPCS: 36415; 71045; 80053; 81003; 82550; 83690; 83735; 84484; 85025; 85610; 85730; 93005; 96374; 99284; C9113

== ENCOUNTER → 2022-09-20 07:25 | Outpatient (CLI) | payer MEDICARE, OTHER, SELFPAY | PROVIDERS: PCP Family Medicine; Referring Provider Family Medicine; Visit Provider Family Medicine | DX: B83.9 Helminthiasis, unspecified (principal) | CPT/HCPCS: 87177 ==

== ENCOUNTER → 2022-11-20 12:20 | Outpatient (CLI) | payer MEDICARE, OTHER, SELFPAY ==
[2022-11-20 14:04] LABS: Alanine Aminotransferase 24 IU/L (<35); Albumin 4.2 g/dL (3.5-5.0); Albumin Globulin Ratio 1.6 (1.0-2.8); Alkaline Phosphatase 64 U/L (38-126); Aspartate Aminotransferase 28 IU/L (14-36); BUN Creatinine Ratio 23.8 (6-22); Bilirubin Total 0.7 mg/dL (0.2-1.3); Blood Urea Nitrogen 24 mg/dL (7-17); Calcium 9.1 mg/dL (8.4-10.2); Carbon Dioxide 24 mmol/L (22-32); Chloride 102 mmol/L (98-107); Estimated Glomerular Filt Rate 60 mL/min (>60); Globulin 2.7 g/dL (1.7-4.1); Glucose 111 mg/dL (80-110); HEMOLYSIS < 15 (0-50); Potassium 3.7 mmol/L (3.4-5.1); Sodium 137 mmol/L (137-145); Total Protein 6.9 g/dL (6.3-8.2)
[2022-11-20 15:04] LABS: Creatinine Urine Random 70.2 mg/dL
[2022-11-20 15:24] LABS: Microalbumin Urine Random < 0.6 mg/dL (0-1.6)
== END ==
PROVIDERS: PCP Family Medicine; Referring Provider Family Medicine; Visit Provider Family Medicine
DX: R73.03 Prediabetes (principal); I10 Essential (primary) hypertension
CPT/HCPCS: 36415; 80053; 82043; 82570; 83036

== ENCOUNTER → 2023-05-15 07:52 | Outpatient (CLI) | payer MEDICARE, OTHER, SELFPAY ==
[2023-05-15 08:43] LABS: Alanine Aminotransferase 15 IU/L (<35); Albumin 4.1 g/dL (3.5-5.0); Albumin Globulin Ratio 1.4 (1.0-2.8); Alkaline Phosphatase 60 U/L (38-126); Aspartate Aminotransferase 21 IU/L (14-36); BUN Creatinine Ratio 27.5 (6-22); Bilirubin Total 0.6 mg/dL (0.2-1.3); Blood Urea Nitrogen 25 mg/dL (7-17); Calcium 9.5 mg/dL (8.4-10.2); Carbon Dioxide 30 mmol/L (22-32); Chloride 108 mmol/L (98-107); Cholesterol 189 mg/dL (140-199); Estimated Glomerular Filt Rate > 60 mL/min (>60); Globulin 2.9 g/dL (1.7-4.1); Glucose 107 mg/dL (80-110); HDL Cholesterol 69 mg/dL (40-60); HEMOLYSIS < 15 (0-50); LDL Cholesterol Calculated 101 mg/dL (<100); Potassium 4.3 mmol/L (3.4-5.1); Sodium 142 mmol/L (137-145); Triglycerides 94 mg/dL (35-150)
[2023-05-15 12:07] LABS: Creatinine Urine Random 111.2 mg/dL
[2023-05-15 12:12] LABS: Microalbumin Urine Random < 0.6 mg/dL (0-1.6)
== END ==
PROVIDERS: PCP Family Medicine; Referring Provider Family Medicine; Visit Provider Family Medicine
DX: R73.03 Prediabetes (principal); I10 Essential (primary) hypertension
CPT/HCPCS: 36415; 80053; 80061; 82043; 82570; 83036

== ENCOUNTER → 2023-07-17 10:59 | Outpatient (CLI) | payer MEDICARE, OTHER, SELFPAY ==
--- NOTE | 2023-07-17 11:00 | DI.RAD.S_ITS ---
PROCEDURE: XR DEXA AXIAL SKELETON INDICATIONS: screening COMPARISON: None. FINDINGS: Lumbar Spine: Bone mineral density 1.016 g/cm2, T score -0.3. Left Hip: Bone mineral density 0.860 g/cm2, T score -0.7. Left Femoral Neck: Bone mineral density 0.725 g/cm2, T score -1.1. Right Hip: Bone mineral density 0.859 g/cm2, T score -0.7. Right Femoral Neck: Bone mineral density 0.697 g/cm2, T score -1.4. Fracture Risk Calculation (when applicable): 10-year fracture risk of a major osteoporotic fracture 15% and of a hip fracture 2.2%. (T score greater or equal to -1.0 to: NORMAL) (T score from -1.1 to -2.4: OSTEOPENIA) (T score less than or equal to -2.5: OSTEOPOROSIS) IMPRESSION: Osteopenia Follow-up guidelines as follows: Osteoporosis: Consider a repeat DEXA and Vertebral Fracture Assessment (VFA) exam in 2 years or sooner if medically necessary, to reassess this patient's status. Osteopenia: Consider a repeat DEXA in 2-3 years to reassess this patient's status, or if there is a new clinical indication. Normal: Consider a repeat DEXA in 5 years or sooner, or if there is a new clinical indication. Dictated by: Burke Doan M.D. on 07/17/2023 at 13:26 Approved by: Burke Doan M.D. on 07/17/2023 at 13:33
--- NOTE | 2023-07-17 11:00 | DI.MRI.S_ITS ---
PROCEDURE: MR HEAD/BRAIN WO CON INDICATIONS: headaches TECHNIQUE: Non-contrast axial T1 spin echo, axial T2 fast spin echo, sagittal and axial FLAIR, coronal T2 fast spin echo, axial gradient echo, axial diffusion and ADC through the brain. COMPARISON: None. FINDINGS: Image quality: Excellent. CSF spaces: Ventricles appear symmetric in size and shape. Basal cisterns are patent. No extra-axial fluid collections. Brain: No intracranial bleeds or mass effects. There is cerebral volume loss for age. There are periventricular and deep white matter chronic small vessel ischemic changes. Brainstem appears normal. Diffusion-weighted images show no acute infarct. No chronic ischemic insults. Normal intravascular flow voids are present. Skull and face: Calvarial bone marrow is normal in signal. Orbits are normal. Sinuses: Sinuses and mastoids are clear. IMPRESSION: Brain MRI within normal limits for age, without a cause of headache identified. To the limits of this noncontrast study, no findings masses or mass effect can be seen. Dictated by: Yahir Huynh M.D. on 07/17/2023 at 10:46 Approved by: Yahir Huynh M.D. on 07/17/2023 at 10:47
== END ==
LOC: RAD 11:00
PROVIDERS: PCP Family Medicine; Referring Provider Family Medicine; Visit Provider Family Medicine
DX: R51.9 Headache, unspecified (principal); M85.852 Other specified disorders of bone density and structure, left thigh; M85.851 Other specified disorders of bone density and structure, right thigh
CPT/HCPCS: 70551; 77080

== ENCOUNTER → 2023-07-19 08:39 | Outpatient (CLI) | payer MEDICARE, OTHER, SELFPAY ==
--- NOTE | 2023-07-19 | DI.MG.S_ITS ---
UNILATERAL LEFT DIGITAL DIAGNOSTIC MAMMOGRAM 3D/2D: 07/19/2023 CLINICAL: Tramflap reconstruction. Comparison is made to exam dated: 07/19/2023 [facility]. The left breast is almost entirely fatty (category a/<25% glandular tissue). There also is a benign 1 cm oval fat necrosis with dystrophic calcifications in the left breast at 2 o'clock middle depth. This correlates as palpated and with ultrasound findings. Several surgical clips. No other significant masses or calcifications are seen in the breast. IMPRESSION: BENIGN There is no mammographic evidence of malignancy. Dystrophic calcification in the left breast reconstruction at the palpable abnormality is presumable due to fat necrosis and is benign. Exam findings were discussed with the patient. Patient is advised to monitor for significant change. This exam was interpreted at Station ID: [id number]. NOTE: For mammograms, a report in lay terms will be sent to the patient. Approximately 15% of breast malignancies will not be visualized mammographically. In the management of a palpable breast mass, a negative mammogram must not discourage biopsy of a clinically suspicious lesion. Electronically Signed By: Burke Doan M.D. [facility] [place]/:07/19/2023 10:49:20 letter sent: Normal Exam ACR BI-RADS Category 2: Benign Finding(s) [id number]
--- NOTE | 2023-07-19 09:00 | DI.US.S_ITS ---
LIMITED ULTRASOUND OF LEFT BREAST AND AXILLA: 07/19/2023 CLINICAL: Patient returns for additional imaging over a suspected mass in the left breast. Personal history of right breast cancer. Personal history of left breast cancer. Palpable left breast lump. Palpable left axilla lump. No prior exams were available for comparison. Color flow and real-time ultrasound of the left breast axilla were performed. Esquivel scale images of the real-time examination were reviewed. There is a 0.8 cm x 0.8 cm x 0.5 cm oval mass with a circumscribed margin in the left breast at 2 o'clock posterior depth 7 cm from the nipple. This oval mass is hypoechoic with posterior acoustic shadowing. The abnormality is calcified. This correlates as palpated. Color flow imaging demonstrates that there is twinkle artifact vs vascularity present. No significant abnormalities were seen sonographically in the left axilla. IMPRESSION: INCOMPLETE: NEEDS ADDITIONAL IMAGING EVALUATION The 0.8 cm mass in the left breast is indeterminate. This could represent fat necrosis or a mass. A diagnostic mammogram is recommended. Prior bilateral mastectomies and breast reconstruction. The patient reports palpated the abnormality for about 1 year. Exam findings were discussed with the patient. No enlarged left axillary lymph nodes. This exam was interpreted at Station ID: [id number]. Electronically Signed By: Burke Doan M.D. [facility]/:07/19/2023 10:43:54 Ultrasound BI-RADS: 0 Indeterminate
== END ==
PROVIDERS: PCP Family Medicine; Referring Provider Family Medicine; Visit Provider Family Medicine
DX: N64.1 Fat necrosis of breast; R92.8 Other abnormal and inconclusive findings on diagnostic imaging of breast; N64.4 Mastodynia; R92.312 Mammographic fatty tissue density, left breast; Z85.3 Personal history of malignant neoplasm of breast
CPT/HCPCS: 76642; 77065; G0279

== ENCOUNTER → 2023-08-24 11:01 | Outpatient (CLI) | payer MEDICARE, OTHER, SELFPAY ==
[2023-08-24 12:26] LABS: BUN Creatinine Ratio 29.8 (6-22); Blood Urea Nitrogen 25 mg/dL (7-17); Calcium 8.5 mg/dL (8.4-10.2); Carbon Dioxide 25 mmol/L (22-32); Chloride 107 mmol/L (98-107); Estimated Glomerular Filt Rate > 60 mL/min (>60); Glucose 107 mg/dL (80-110); HEMOLYSIS < 15 (0-50); Potassium 3.9 mmol/L (3.4-5.1); Sodium 138 mmol/L (137-145)
== END ==
PROVIDERS: PCP Family Medicine; Referring Provider Family Medicine; Visit Provider Family Medicine
DX: I10 Essential (primary) hypertension (principal); E87.6 Hypokalemia
CPT/HCPCS: 36415; 80048

== ENCOUNTER 2023-09-08 19:32 | Emergency (ER) | payer MEDICARE, OTHER, SELFPAY ==
[2023-09-08 19:59] VITALS: BP 151/70; PULSE 98; RESP 20; TEMP 37.7; O2SAT 95; BMI 31.5
--- NOTE | 2023-09-08 20:06 | DI.RAD.S_ITS ---
PROCEDURE: XR CHEST 2V INDICATIONS: covid +, cough TECHNIQUE: 2 views of the chest were acquired. COMPARISON: [facility], CR, XR CHEST 1V, 06/07/2022, 14:19. [facility], CR, XR CHEST 2V, 08/15/2021, 9:37. FINDINGS: Surgical changes and devices: Chest wall surgical clips Cervical fusion hardware Lungs and pleura: No dense consolidation or pleural effusion. Mediastinum: Normal heart size Bones and chest wall: Degenerative changes IMPRESSION: No acute radiographic abnormality. Dictated by: Antonio Brooks M.D. on 09/08/2023 at 20:55 Approved by: Antonio Brooks M.D. on 09/08/2023 at 20:56
--- NOTE | 2023-09-09 05:31 | ED.URI ---
HPI - URI/Sore Throat General Chief Complaint: Upper Respiratory Symptoms Stated Complaint: COVID+, SoB, Sore Throat, Diff Swallowing Source: patient Mode of arrival: Ambulatory History of Present Illness HPI Narrative: Patient left without seeing provider Related Data Home Medications Medication Instructions Recorded Confirmed aspirin 81 mg tablet,delayed 81 mg PO DAILY 10/03/18 08/21/23 release (Jenifer Low Dose Aspirin) mometasone 0.1 % topical solution 1 applic topical DAILY 08/15/21 08/21/23 Previous Rx's Medication Instructions Recorded albuterol sulfate 90 mcg/actuation 2 puff inhalation Q4HP PRN 09/30/19 aerosol inhaler (Ventolin HFA) shortness of breath or wheezing #1 inh omeprazole 20 mg capsule,delayed See Rx Instructions .Route 05/12/20 release .COMPLEX #180 caps albuterol sulfate 90 mcg/actuation 1 inh inhalation QID PRN shortness 08/15/20 aerosol inhaler of breath or wheezing #6.7 grams ondansetron 4 mg disintegrating 4 mg PO Q6H PRN nausea and 10/04/20 tablet vomiting #10 tabs mometasone 0.1 % topical solution 1 applic topical DAILY 21 days #30 08/15/21 mL evolocumab 420 mg/3.5 mL 420 mg (3.5 mL) SUBCUT MONTHLY 06/28/23 subcutaneous wearable injector #3.5 mL (Repatha Pushtronex) hydrochlorothiazide 12.5 mg capsule 25 mg (2 x 12.5 mg) PO DAILY #180 06/28/23 caps tamsulosin 0.4 mg capsule 0.4 mg PO DAILY #90 caps 07/09/23 losartan 100 mg tablet 100 mg PO DAILY #90 tabs 07/10/23 metoprolol succinate 25 mg 25 mg PO DAILY #90 tabs 08/21/23 tablet,extended release 24 hr nirmatrelvir 300 mg (150 mg See Rx Instructions PO .COMPLEX 09/06/23 x2)-ritonavir 100 mg tablet,dose #30 ea pack (Paxlovid) Allergies Allergy/AdvReac Type Severity Reaction Status Date / Time Opioids - Morphine Analogues AdvReac Unknown Nausea Verified 09/08/23 19:58 Patient History Medical History (Updated 09/09/23 @ 04:14 by Say Patrick RN) Cerebrovascular disease Hyperlipidemia Stress fracture (~2015) Lymph edema (~2010) Osteoarthritis (~2016) Asthma Seasonal allergies Foot pain (~2015) Chronic back pain (~2015) Cervical spine disease (~2002) Actinic keratosis Measles (~1959) Chicken pox (~1959) Ear itch Herpes Fibroids (~2004) Endometriosis (~2008) Skin cancer Lung nodule (04/09/17) Vaginal atrophy (02/26/17) Chronic interstitial cystitis (02/26/17) History of malignant neoplasm of breast (02/26/17) Gastroesophageal reflux disease without esophagitis (02/26/17) Essential hypertension (02/26/17) Surgical History History of oophorectomy (~2008) History of breast reconstruction (~2006) History of mastectomy (~2006) History of lumpectomy (~2005) History of laminectomy (~2003) History of surgery (~2002) History of cataract removal with insertion of prosthetic lens (~2012) Status post appendectomy (~2011) Family History Father Heart disease Brain tumor Parkinson's disease Emphysema, unspecified Mother Heart disease Hypertension Stroke Diabetes mellitus Sister Heart disease Hypertension Diabetes mellitus Social History marital status: number of children: 0 household members: spouse lives independently: Yes caregiver/support person: No housing: house pets and animals: No education level: master's degree occupational status: previously employed current occupational exposures/hazards: No special elizabeth needs: No leisure activities: exercise, reading, volunteer work and other other: travel seatbelt use: always helmet use: Yes water heater temp set < 120 deg: No (125) working smoke detector in home: Yes fire extinguisher in home: Yes carbon monox detector in home: Yes firearms in home: No do you feel safe at home: Yes Smoking Status: Never smoker second hand exposure: No alcohol intake: current substance use type: marijuana during the past year weight has: remained stable well-balanced diet: daily or most days daily servings fruits/ve-4 caffeine: Yes eating out: 1-3 times/week Type(s) of exercise: walking and weight lifting frequency: daily duration: 30-45 minutes/day Smoking Status: Never smoker alcohol intake frequency: a few times a month Substance Use Type: does not use Exam Initial Vital Signs Initial Vital Signs: Vital Signs Temperature 99.8 F H 09/08/23 19:59 Pulse Rate 98 H 09/08/23 19:59 Respiratory Rate 20 09/08/23 19:59 Blood Pressure 151/70 H 09/08/23 19:59 Pulse Oximetry 95 09/08/23 19:59 Oxygen Delivery Method Room Air 09/08/23 19:59 Discharge Plan Departure Patient Disposition: Left Without Being Seen Clinical Impression: Patient left without being seen Prescriptions: No Action aspirin [Jenifer Low Dose Aspirin] 81 mg tablet,delayed release (DR/EC) 81 mg PO DAILY albuterol sulfate 90 mcg/actuation HFA aerosol inhaler 1 inh inhalation QID PRN (Reason: shortness of breath or wheezing) Qty: 6.7 0RF hydrochlorothiazide 12.5 mg capsule 25 mg PO DAILY Qty: 180 3RF Repatha Pushtronex 420 mg/3.5 mL wearable injector 420 mg SUBCUT MONTHLY Qty: 3.5 6RF metoprolol succinate 25 mg tablet extended release 24 hr 25 mg PO DAILY Qty: 90 3RF mometasone 0.1 % solution 1 applic topical DAILY mometasone 0.1 % solution 1 applic TOP DAILY 21 Days Qty: 30 2RF albuterol sulfate [Ventolin HFA] 90 mcg/actuation HFA aerosol inhaler 2 puff inhalation Q4HP PRN (Reason: shortness of breath or wheezing) Qty: 1 2RF omeprazole 20 mg capsule,delayed release(DR/EC) See Rx Instructions .ROUTE .COMPLEX Qty: 180 1RF Dose Instruction: take 1 capsule by mouth twice a day Rx Instructions: take 1 capsule by mouth twice a day tamsulosin 0.4 mg capsule 0.4 mg PO DAILY Qty: 90 0RF losartan 100 mg tablet 100 mg PO DAILY Qty: 90 0RF Paxlovid 300 mg (150 mg x 2)-100 mg tablets,dose pack See Rx Instructions PO .COMPLEX Qty: 30 0RF Rx Instructions: take TWO 150 mg tablets of nirmatrelvir with ONE 100 mg tablet of ritonavir twice daily for 5 days PO ondansetron 4 mg tablet,disintegrating 4 mg PO Q6H PRN (Reason: nausea and vomiting) Qty: 10 0RF
== END 2023-09-09 00:01 | disposition left against medical advice (07) ==
PROVIDERS: Emergency Provider Emergency Medicine; PCP Family Medicine
DX: U07.1 COVID-19 (principal)
CPT/HCPCS: 71046; 99281

== ENCOUNTER → 2024-05-08 07:46 | Outpatient (CLI) | payer MEDICARE, OTHER, SELFPAY ==
[2024-05-08 08:33] LABS: Cholesterol 162 mg/dL (140-199); HDL Cholesterol 61 mg/dL (40-60); LDL Cholesterol Calculated 76 mg/dL (<100); Triglycerides 123 mg/dL (35-150)
== END ==
PROVIDERS: PCP Family Medicine; Referring Provider Family Medicine; Visit Provider Family Medicine
DX: E78.5 Hyperlipidemia, unspecified (principal)
CPT/HCPCS: 36415; 80061

== ENCOUNTER → 2024-07-24 15:02 | Outpatient (CLI) | payer MEDICARE, OTHER, SELFPAY ==
[2024-07-24 15:43] LABS: Hematocrit 37.5 % (36-46); Hemoglobin 12.7 g/dL (12.0-16.0); Mean Corpuscular HGB Conc 33.8 % (30-36); Mean Corpuscular Volume 85.9 fL (80-100); Platelet Count 249 X10^3/uL (150-400); Red Blood Cell Count 4.37 X10^6/uL (4.0-5.2); Red Cell Distribution Width 13.8 % (11.6-14.8); White Blood Cell Count 5.8 X10^3/uL (4.5-11.0)
[2024-07-24 15:58] LABS: Alanine Aminotransferase 23 IU/L (<35); Albumin 4.6 g/dL (3.5-5.0); Albumin Globulin Ratio 1.7 (1.0-2.8); Alkaline Phosphatase 74 U/L (38-126); Aspartate Aminotransferase 28 IU/L (14-36); BUN Creatinine Ratio 34.2 (6-22); Bilirubin Total 0.7 mg/dL (0.2-1.3); Blood Urea Nitrogen 27 mg/dL (7-17); Calcium 9.2 mg/dL (8.4-10.2); Carbon Dioxide 24 mmol/L (22-32); Chloride 105 mmol/L (98-107); Estimated Glomerular Filt Rate > 60 mL/min (>60); Globulin 2.7 g/dL (1.7-4.1); Glucose 121 mg/dL (70-99); HEMOLYSIS 21 (0-50); Potassium 3.9 mmol/L (3.4-5.1); Sodium 139 mmol/L (137-145); Total Protein 7.3 g/dL (6.3-8.2)
[2024-07-24 16:13] LABS: Free T4, Direct Thyroxine 0.99 ng/dL (0.78-2.19)
[2024-07-24 16:27] LABS: Thyroid Stimulating Hormone 1.79 uIU/mL (0.47-4.68)
== END ==
PROVIDERS: PCP Family Medicine; Referring Provider Physician Assistant Medical; Visit Provider Physician Assistant Medical
DX: L29.89 Other pruritus (principal); L23.9 Allergic contact dermatitis, unspecified cause
CPT/HCPCS: 36415; 80053; 84439; 84443; 85027

== ENCOUNTER → 2024-10-01 11:55 | Outpatient (CLI) | payer MEDICARE, OTHER, SELFPAY | PROVIDERS: PCP Family Medicine; Referring Provider Physician Assistant; Visit Provider Physician Assistant | DX: L29.89 Other pruritus (principal); L30.9 Dermatitis, unspecified | CPT/HCPCS: 36415; 83516 ==

== ENCOUNTER → 2025-01-13 12:35 | Outpatient (CLI) | payer MEDICARE, OTHER, SELFPAY ==
[2025-01-13 12:58] LABS: Add Manual Diff / Slide Review NO; Hematocrit 38.5 % (36-46); Hemoglobin 13.1 g/dL (12.0-16.0); Lymphocytes Absolute Auto 1600 /uL (1100-4500); Mean Corpuscular HGB Conc 33.9 % (30-36); Mean Corpuscular Hemoglobin 28.5 PG (26-34); Mean Corpuscular Volume 84.1 fL (80-100); Platelet Count 297 X10^3/uL (150-400)
[2025-01-13 13:14] LABS: Alanine Aminotransferase 17 IU/L (<35); Albumin 4.6 g/dL (3.5-5.0); Albumin Globulin Ratio 1.5 (1.0-2.8); Alkaline Phosphatase 80 U/L (38-126); Blood Urea Nitrogen 22 mg/dL (7-17); Calcium 9.2 mg/dL (8.4-10.2); Carbon Dioxide 27 mmol/L (22-32); Chloride 103 mmol/L (98-107); Estimated Glomerular Filt Rate > 60 mL/min (>60); Globulin 3.0 g/dL (1.7-4.1); Glucose 109 mg/dL (70-99); HEMOLYSIS < 15 (0-50); Potassium 3.8 mmol/L (3.4-5.1); Sodium 138 mmol/L (137-145); Total Protein 7.6 g/dL (6.3-8.2)
[2025-01-14 15:01] LABS: Hepatitis B Surface Antigen NEGATIVE s/c (NEGATIVE)
[2025-01-14 15:35] LABS: Hep C Virus Ab w/Reflex Quant NEGATIVE s/c (NEGATIVE)
[2025-01-14 23:10] LABS: QuantiFERON Mitogen Value >10.00 IU/mL (.); QuantiFERON Nil Value 0.04 IU/mL (.); QuantiFERON TB Gold Plus Negative (Negative); QuantiFERON TB1 Ag Value 0.06 IU/mL (.); QuantiFERON TB2 Ag Value 0.05 IU/mL (.)
== END ==
PROVIDERS: PCP Family Medicine; Referring Provider Family Medicine; Visit Provider Physician Assistant
DX: L30.9 Dermatitis, unspecified (principal)
CPT/HCPCS: 36415; 80053; 85025; 86038; 86480; 86706; 86803; 87340

== ENCOUNTER → 2025-03-05 10:58 | Outpatient (CLI) | payer MEDICARE, OTHER, SELFPAY ==
[2025-03-05 11:27] LABS: Add Manual Diff / Slide Review NO; Hematocrit 38.6 % (36-46); Hemoglobin 13.0 g/dL (12.0-16.0); Lymphocytes Absolute Auto 1200 /uL (1100-4500); Mean Corpuscular HGB Conc 33.6 % (30-36); Mean Corpuscular Hemoglobin 28.5 PG (26-34); Mean Corpuscular Volume 84.7 fL (80-100); Platelet Count 268 X10^3/uL (150-400)
[2025-03-05 11:41] LABS: Alanine Aminotransferase 18 IU/L (<35); Albumin 4.4 g/dL (3.5-5.0); Albumin Globulin Ratio 1.5 (1.0-2.8); Alkaline Phosphatase 66 U/L (38-126); Blood Urea Nitrogen 23 mg/dL (7-17); Calcium 8.9 mg/dL (8.4-10.2); Carbon Dioxide 25 mmol/L (22-32); Chloride 108 mmol/L (98-107); Estimated Glomerular Filt Rate > 60 mL/min (>60); Globulin 3.0 g/dL (1.7-4.1); Glucose 123 mg/dL (70-99); HEMOLYSIS < 15 (0-50); Potassium 3.7 mmol/L (3.4-5.1); Sodium 141 mmol/L (137-145); Total Protein 7.4 g/dL (6.3-8.2)
== END ==
PROVIDERS: PCP Family Medicine; Referring Provider Internal Medicine Hematology & Oncology; Visit Provider Internal Medicine Hematology & Oncology
DX: C44.92 Squamous cell carcinoma of skin, unspecified (principal); C50.812 Malignant neoplasm of overlapping sites of left female breast; Z17.1 Estrogen receptor negative status [ER-]
CPT/HCPCS: 36415; 80053; 85025

== ENCOUNTER → 2025-03-09 09:15 | Outpatient (CLI) | payer MEDICARE, OTHER, SELFPAY ==
--- NOTE | 2025-03-09 09:16 | DI.CT.S_ITS ---
PROCEDURE: CT CHEST ABD PEL W CON INDICATIONS: prior to preop systemic therapy TECHNIQUE: After the administration of intravenous contrast, 5 mm thick sections acquired from the lung apices to the symphysis. 5 mm coronal and sagittal reformats were performed, with additional 7 mm MIP reformats through the lungs. For radiation dose reduction, the following was used: automated exposure control, adjustment of mA and/or kV according to patient size. COMPARISON: [facility], CT, CT ABDOMEN PELVIS W CON, 01/22/2022, 16:20. [facility], CT, CT ANGIO CHEST PE PROTOCOL, 01/22/2022, 16:20. FINDINGS: Image quality: Excellent. CHEST: Lower Neck: No enlarged lymph nodes. Thyroid: No thyroid nodules which require sonographic follow up, per consensus guidelines. Axillae: No enlarged lymph nodes. Several surgical clips left axilla. Chest Wall: Unremarkable. Lungs and Pleura: No pneumothorax or pleural effusions. No consolidation or suspicious nodules. Heart: Heart size is normal. No pericardial effusion. Thoracic Vessels: The aorta and pulmonary arteries demonstrate normal size. Mediastinum and Conchis: No enlarged lymph nodes. Esophagus: No wall thickening. No hiatal hernia. ABDOMEN: Liver: No solid mass. Gallbladder: No radiopaque gallstones or wall thickening. Biliary ducts: No biliary dilation. Pancreas: No ductal dilation. Spleen: Size is within normal limits. Adrenal Glands: No adrenal nodules. Kidneys and Ureters: No hydronephrosis. No solid mass. No complex renal cystic lesion which requires follow up. Stomach and Bowel: Normal colonic caliber, without significant wall thickening. Peritoneum: No abnormal intraperitoneal fluid. No free air. Ventral Wall: No significant ventral hernia. Abdominal Nodes: No retroperitoneal or mesenteric adenopathy by size criteria. Vessels: Aorta and inferior vena cava are normal in size. PELVIS: Pelvic Organs: Unremarkable. Bladder: No bladder wall thickening, accounting for underdistention. Pelvic Nodes: No enlarged lymph nodes. Miscellaneous: No inguinal hernias are seen. Bones: No aggressive osseous abnormality. IMPRESSION: Several surgical clips in the medial left breast and left axillary lymph node area. No adenopathy or distant metastatic disease is found. No soft tissue mass identified. Dictated by: Aries Ojeda M.D. on 03/10/2025 at 16:05 Approved by: Aries Ojeda M.D. on 03/10/2025 at 16:10
== END ==
LOC: CT 09:15
PROVIDERS: PCP Family Medicine; Referring Provider Internal Medicine Hematology & Oncology; Visit Provider Internal Medicine Hematology & Oncology
DX: C44.92 Squamous cell carcinoma of skin, unspecified (principal); C50.812 Malignant neoplasm of overlapping sites of left female breast; Z17.1 Estrogen receptor negative status [ER-]
CPT/HCPCS: 71260; 74177; Q9967